=== PATIENT | female | born 1985 | race Caucasian/White ===

== ENCOUNTER 2021-11-16 10:30 | Outpatient (REF) | payer BC, SELFPAY ==
[2021-11-16 14:46] LABS: Free T4 (Free Thyroxine) 0.89 ng/dL (0.71-1.85); Thyroid Stimulating Hormone 6.51 uIU/mL (0.32-4.0)
[2021-11-17 19:52] LABS: Follicle Stimulating Hormone 2.8 mIU/mL; Lutenizing Hormone 0.9 mIU/mL
[2021-11-25 01:52] LABS: Estradiol Free 0.02 pg/mL; Estradiol, Ultrasensitive 2 pg/mL
== END 2021-11-16 10:31 | disposition home or self-care (01) ==
LOC: HO.MANLDS 10:30
PROVIDERS: Visit Provider Physician Assistant
DX: R61 Generalized hyperhidrosis (principal)
CPT/HCPCS: 36415; 82670; 82681; 83001; 83002; 84439; 84443

== ENCOUNTER 2021-12-14 10:08 | Outpatient (REF) | payer BC, SELFPAY ==
[2021-12-14 13:35] LABS: Free T4 (Free Thyroxine) 0.88 ng/dL (0.71-1.85)
== END 2021-12-14 10:09 | disposition home or self-care (01) ==
LOC: HO.MANLDS 10:08
PROVIDERS: Visit Provider Physician Assistant
DX: E03.9 Hypothyroidism, unspecified (principal)
CPT/HCPCS: 36415; 84439; 84443

== ENCOUNTER 2025-02-18 20:36 | Inpatient (IN) | payer BC, SELFPAY ==
--- OUTSIDE RECORDS SUMMARY | 2025-02-18 10:24 | XMS_ITS | Encounter Summary ---
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 Value Ref Range WBC 7.18 4.00 - 11.00 K/uL RBC 4.24 4.00 - 5.20 M/uL HGB 11.4 (L) 12.0 - 16.0 g/dL HCT 35.5 (L) 36.0 - 46.0 % PLT 254 150 - 450 K/uL MCV 83.7 80.0 - 100.0 fL MCH 26.9 (L) 27.0 - 31.0 pg MCHC 32.1 32.0 - 36.0 g/dL RDW 15.0 (H) 11.5 - 14.5 % MPV 11.7 8.4 - 12.0 fL NRBC 0.00 0.00 /100 WBCs ABSOLUTE NRBC 0.00 0.00 K/uL DIFF METHOD Auto NEUTS 73.8 48.0 - 76.0 % LYMPHS 18.0 18.0 - 41.0 % MONOS 7.2 4.0 - 11.0 % EOS 0.1 0.0 - 5.0 % BASOS 0.6 0.0 - 1.5 % Granulocytes, immature (%) 0.3 0.0 - 0.9 % ABSOLUTE NEUTS 5.30 1.92 - 7.60 K/uL ABSOLUTE LYMPHS 1.29 0.72 - 4.10 K/uL ABSOLUTE MONOS 0.52 0.16 - 1.10 K/uL ABSOLUTE EOS 0.01 0.00 - 0.50 K/uL ABSOLUTE BASOS 0.04 0.00 - 0.15 K/uL Granulocytes, immature 0.02 0.00 - 0.09 K/uL Radiology Testing No orders to display MDM Assessment and Plan: 39-year-old female past medical history significant for depression who presents to the emergency department for suicidal ideation. She is afebrile with stable vitals and well-appearing. History and physical as stated above. She has no medical complaints at this time. Medical clearance labs were obtained to further evaluate. They do show baseline anemia. Otherwise labs are grossly unremarkable. Patient was medically cleared while in the emergency department. There is no evidence of acute traumatic injury, acute infection, intoxication or withdrawal syndrome to a degree that would preclude further psychiatric evaluation or treatment. This patient is medically stable. THROW OUT CLERK was contacted to come and evaluate the patient. They deemed she is meeting criteria for inpatient level of care at this time. Patient will be a voluntary bed search. Patient was placed in emergency department observation status pending inpatientpsychiatric bed search. Attestation: Emmy Sales PA-C, have seen this patient independently. This is a PA only visit Category 2 and 3: Independent Interpretation of Tests, Consideration of Tests, or External Discussion of Results: Labs: Laboratory studies were interpreted. Clinical Impressions as of 02/18/251414 Suicidal ideation Critical Care Time: 0 minutes Clinical Impression Diagnosis Description Comment Final diagnosis Suicidal ideation Suicidal ideation -- Disposition: Placed in emergency department psychiatric observation status Emmy Napoles PA-C 02/18/251415 * Iglesia Bowen MD - 02/18/2025 9:35 AM EDT ED Course Clinical Impressions as of 02/18/251947 Suicidal ideation Attestation: I have reviewed and agree with the history, physical exam, medical decision making and plan for thepatient as documented by the APC. As necessary, I have appended the note with my suggestions, comments or clarification to their assessment and plan in the note above. Iglesia Bowen MD 02/18/251947 documented in this encounter Plan of Treatment Not on file documented as of this encounter Procedures Procedure Name Priority Date/Time Associated Diagnosis Comments ETHANOL, BLOOD STAT 02/18/2025 10:40 AM EDT HCG, SERUM QUALITATIVE STAT 10:40 AM EDT LFTS (HEPATIC PANEL) STAT 02/18/2025 10:40 AM EDT CBC AND DIFFERENTIAL STAT 02/18/2025 10:40 AM EDT ACETAMINOPHEN LEVEL STAT 02/18/2025 1 0:40 AM EDT SALICYLATES STAT 02/18/2025 10:40 AM EDT BASIC METABOLIC PANEL STAT 02/18/2025 10:40 AM EDT TOXICOLOGY SCREEN, URINE STAT 02/18/2025 10:14 AM EDT documented in this encounter Results * (ABNORMAL) Salicylates (02/18/2025 10:40 AM EDT) SALICYLATES <0.3(L) 2.8 - 19.9 mg/dL [facility] Blood 02/18/2025 10:4 0 AM EDT 02/18/2025 10:42 AM EDT us Garrison Parks MD LAB BLOOD ORDERABLES Final Resu lt Performing Organization Address City/[facility]/ZIP Co de Phone Number [address] [address] * (ABNORMAL) Acetaminophen level (02/18/2025 10:40 AM EDT) ACETAMINOPHEN <5.0(L) 15.0 - 30.0 ug/mL [facility] Blood 02/18/2025 10:4 0 AM EDT 02/18/2025 10:42 AM EDT us Garrison Parks MD LAB BLOOD ORDERABLES Final Resu lt Performing Organization Address City/[facility]/ZIP Co de Phone Number [address] [address] * HCG, serum qualitative (02/18/2025 10:40 AM EDT) HCG, QUALITATIVE Negative Negative IU/L [facility] Blood 02/18/2025 10:4 0 AM EDT 02/18/2025 10:42 AM EDT us Garrison Parks MD LAB BLOOD ORDERABLES Final Resu lt Performing Organization Address City/[facility]/ZIP Co de Phone Number [address] [address] * Ethanol, blood (02/18/2025 10:40 AM EDT) ETHANOL <10 <10 mg/dL [facility] Blood 02/18/2025 10:4 0 AM EDT 02/18/2025 10:42 AM EDT us Garrison Parks MD LAB BLOOD ORDERABLES Final Resu lt Performing Organization Address [facility] Co de Phone Number [address] [address] * LFTs (hepatic panel) (02/18/2025 10:40 AM EDT) ALKALINE PHOSPHATASE 55 39 - 117 U/L [facility] TOTAL BILIRUBIN 0.4 0.0 - 1.2 mg/dL [facility] DIRECT BILIRUBIN 0.1 0.0 - 0.2 mg/dL [facility] Bilirubin (Indirect) NOT CALCULATED 0 - 1.5 mg/dL [facility] AST 18 0 - 37 U/L [facility] ALT 9 0 - 40 U/L [facility] TOTAL PROTEIN 6.9 6.5 - 8.0 g/dL [facility] ALBUMIN 4.1 3.9 - 4.8 g/dL [facility] GLOBULIN 2.8 1 - 4.8 g/dL [facility] A/G Ratio 1.46 1.00 - 4.80 RATIO [facility] Blood 02/18/2025 10:4 0 AM EDT 02/18/2025 10:42 AM EDT us Garrison Parks MD LAB BLOOD ORDERABLES Final Resu lt Performing Organization Address City/[facility]/ZIP Co de Phone Number [address] [address] * Basic metabolic panel (02/18/2025 10:40 AM EDT) SODIUM 139 133 - 146 mmol/L [facility] CHLORIDE 106 96 - 108 mmol/L [facility] POTASSIUM 4.1 3.3 - 5.1 mmol/L [facility] CO2 22 21 - 35 mmol/L [facility] BUN 11 6 - 19 mg/dL [facility] CREATININE 0.70 0.5 - 1.5 mg/dL [facility] GLUCOSE 93 70 - 99 mg/dL [facility] CALCIUM 9.2 8.4 - 10.3 mg/dL [facility] EGFR 114 >59 mL/min/1.7 3m2 [facility] Comment:Estimated glomerular filtration rate calculated using the CKD-EPI refit equation. ANION GAP 15 10 - 20 mmol/L [facility] Blood 02/18/2025 10:4 0 AM EDT 02/18/2025 10:42 AM EDT us Garrison Parks MD LAB BLOOD ORDERABLES Final Resu lt [address] [address] * (ABNORMAL) CBC and differential (02/18/2025 10:40 AM EDT) WBC 7.18 4.00 - 11.00 K/uL [facility] RBC 4.24 4.00 - 5.20 M/uL [facility] HGB 11.4(L) 12.0 - 16.0 g/dL [facility] HCT 35.5(L) 36.0 - 46.0 % [facility] PLT 254 150 - 450 K/uL [facility] MCV 83.7 80.0 - 100.0 fL [facility] MCH 26.9(L) 27.0 - 31.0 pg [facility] MCHC 32.1 32.0 - 36.0 g/dL [facility] RDW 15.0(H) 11.5 - 14.5 % [facility] MPV 11.7 8.4 - 12.0 fL [facility] NRBC 0.00 0.00 /100 WBCs [facility] ABSOLUTE NRBC 0.00 0.00 K/uL [facility] DIFF METHOD Auto [facility] NEUTS 73.8 48.0 - 76.0 % [facility] LYMPHS 18.0 18.0 - 41.0 % [facility] MONOS 7.2 4.0 - 11.0 % [facility] EOS 0.1 0.0 - 5.0 % [facility] BASOS 0.6 0.0 - 1.5 % [facility] Granulocytes, immature (%) 0.3 0.0 - 0.9 % [facility] ABSOLUTE NEUTS 5.30 1.92 - 7.60 K/uL [facility] ABSOLUTE LYMPHS 1.29 0.72 - 4.10 K/uL [facility] ABSOLUTE MONOS 0.52 0.16 - 1.10 K/uL [facility] ABSOLUTE EOS 0.01 0.00 - 0.50 K/uL [facility] ABSOLUTE BASOS 0.04 0.00 - 0.15 K/uL [facility] Granulocytes, immature 0.02 0.00 - 0.09 K/uL [facility] Blood 02/18/2025 10:4 0 AM EDT 02/18/2025 10:42 AM EDT us Garrison Parks MD LAB BLOOD ORDERABLES Final Resu lt [facility] [address] [place] [address] * (ABNORMAL) Toxicology screen, urine (02/18/2025 10:14 AM EDT) URINE CANNABINOIDS Positive(A) NONE DETECTED [facility] Comment:Cutoff: 50 ng/mL URINE COCAINE METAB NONE DETECTED NONE DETECTED [facility] Comment:Cutoff: 300 ng/mL URINE AMPHETAMINES NONE DETECTED NONE DETECTED [facility] Comment:Cutoff: 1000 ng/mL URINE METHADONE NONE DETECTED NONE DETECTED [facility] Comment:Cutoff: 300 ng/mL URINE OPIATES NONE DETECTED NONE DETECTED [facility] Comment:Cutoff: 300 ng/mL URINE PHENCYCLIDINE NONE DETECTED NONE DETECTED [facility] Comment:Cutoff: 25 ng/mL URINE OXYCODONE NONE DETECTED NONE DETECTED [facility] Comment:Cutoff: 300 ng/mL URINE BARBITURATES NONE DETECTED NONE DETECTED [facility] Comment:Cutoff: 200 ng/mL URINE BENZODIAZEPINE NONE DETECTED NONE DETECTED [facility] Comment:Cutoff: 200 ng/mL URINE BUPRENORPHINE NONE DETECTED NONE DETECTED [facility] Comment:Cutoff: 5 ng/mL Fentanyl, urine NONE DETECTED NONE DETECTED [facility] Comment: Cutoff: 5 ng/mL INTERPRETATION FOR TOXICOLOGY PANEL: These results are unconfirmed and should be used for Medical Treatment purposes only. Urine (Urine) 02/18/2025 10: 14 AM EDT 02/18/2025 1:17 PM EDT us Garrison Parks MD URINE ORDERABLES Final Result Performing Organization Address City/State/[facility] Co de Phone Number [address] [address] documented in this encounter Visit Diagnoses Diagnosis Suicidal ideation- Primary Suicidal ideation documented in this encounter Admitting Diagnoses Diagnosis Suicidal ideation documented in this encounter Administered Medications documented in this encounter Active and Recently Administered Medications Times are shown in EDT. Scheduled Medication Order 02/16/2025 02/17/2025 02/18/2025 fluticasone propionate (FLONASE) 50 mcg/actuation nasal spray 2 spray 2 spray, Each Nare, Daily, First dose on Sun02/18/25 at 1545, Shake gently. Prime pump (press 6 times until fine spray appears) prior to first use or if spray unused for 7 days or GREATER. 1648 (Not Given - Pr ovider: Kristie Cain RN - Reason: Patient took at home) lactobacillus rhamnosus (GG) (CULTURELLE) capsule 1 capsule 1 capsule, Oral, Once, On Sun02/18/25 at 1545, For 1 dose 1648 (Not Given - Pr ovider: Kristie Cain RN - Reason: Patient took at home) documented in this encounter Care Teams Correspondence Section Supervisor Relationship Specialty Start Date End Date Boyd Patterson DO [address] [place] [address] [place] [address] PCP - General Internal Medicine 10/10/24 Reddy Rivera MD [address] [address] Historical LMR Provider 03/12/17 Emym Cartagena MD [address] [address] Historical LMR Provider 03/12/17 Carroll Rojas MD [address] [place] [address] Historical LMR Provider 03/12/17 Brandon Mackenzie MD [address] [address] Historical LMR Provider 03/12/17 Francesca Linda MD [address] [address] Historical LMR Provider 03/12/17 Boyd Patterson DO [address] [facility] [place] [address] Insurance Assigned Provider 01/31/25 documented as of this encounter Additional Source Comments The information contained in this document represents components of the legal health record. It is not the complete legal health record.[facility]
--- OUTSIDE RECORDS SUMMARY | 2025-02-18 20:39 | XMS_ITS | Encounter Summary ---
Author Organization [facility] Address [address] [place] [address] [place] [address] Phone Care Team Providers Care Operations Research Manager Name Role Phone Reddy Rivera MD Unavailable Emmy Cartagena MD Unavailable [phone] Carroll Rojas MD Unavailable [phone] Brandon Mackenzie MD Unavailable [phone] Francesca Linda MD Unavailable [phone] Boyd Patterson DO Primary Care Provider [phone] Boyd Patterson DO Unavailable Encounter Details Date Type Department Care Team (Late st Contact Info) Description 11/14/2024 Transcribe Orders [facility] Specimen Processing [address] [place] [address] Boyd Patterson DO [address] [facility] [place] [address] [email or web address] Social History Tobacco Use Types Packs/Day Years [...] got money to buy more. Never True 10/10/2024 Within the past 6 months the food we bought just didn't last and we didn't have enough money to get more. Never True Residential Stability Answer Date Recor ded What is your housing situation today? I have melissa serrato 10/10/2024 How many times have you move d in the past 12 months? Zero (I did not move) 10/10/2024 Paying for Meds Answer Date Recorded Do you have trouble paying for medicines? No 10/10/2024 Paying Utility Bills Answer Date Record ed Do you have trouble paying your heating or elect ricity bill? No 10/10/2024 Transportation Answer Date Recorded Has the lack of transportati on kept you from medical appointments or from getting medications? No 10/10/2024 Digital Access Answer Date Recorded No 10/10/2024 Yes 10/10/2024 Do you have reliable internet access at home? Ye s 10/10/2024 Do you have a device (e.g., phone, tablet, computer) with a working camera? Yes 10/10/2024 Intimate Partner Violence Answer Date R ecorded Are you denied basic needs s uch as food, clothing, or medical care? No 10/10/2024 In the past 12 months have y ou been in a relationship with a person who hurts, threatens, or tries to control you? No 10/10/2024 Are you denied basic needs s uch as food, clothing, or medical care? No 10/10/2024 In the past 12 months have y ou been in a relationship with a person who hurts, threatens, or tries to control you? 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 Not on file Not on file documented as of this encounter Plan of Treatment Not on file documented as of this encounter Visit Diagnoses Not on filedocumented in this encounter Care Teams Operations Research Manager Relationship Specialty Start Date End Date Boyd Patterson DO [address] [facility] [place] [address] PCP - General Internal Medicine 10/10/24 Reddy Rivera MD [address] [address] Historical LMR Provider 03/12/17 Emmy Cartagena MD [address] [address] Historical LMR Provider 03/12/17 Carroll Rojas MD [address] [place] [address] Historical LMR Provider 03/12/17 Brandon Mackenzie MD [address] [address] Historical LMR Provider 03/12/17 Francesca Linda MD [address] [address] Historical LMR Provider 03/12/17 Boyd Patterson DO [address] [facility] [place] [address] Insurance Assigned Provider 01/31/25 documented as of this encounter Additional Source Comments The information contained in this document represents components of the legal health record. It is not the complete legal health record.[facility]
--- OUTSIDE RECORDS SUMMARY | 2025-02-18 20:39 | XMS_ITS | Encounter Summary ---
Author Organization [facility] Address [address] [place] [address] [place] [address] Phone Care Team Providers Care Biostatistics Professor Name Role Phone Reddy Rivera MD Unavailable Emmy Cartagena MD Unavailable [phone] Carroll Rojas MD Unavailable [phone] Brandon Mackenzie MD Unavailable [phone] Francesca Linda MD Unavailable [phone] Bigda, Boyd A DO Primary Care Provider [phone] Bigda, Boyd A DO Primary Care Provider [phone] Bigda, Boyd A DO Unavailable Encounter Details Date Type Department Care Team (Late st Contact Info) Description 09/28/2023 Procedure Pass [facility], Ct Scan - [address] [address] Social History Tobacco Use Types Packs/Day Years Used Date Smoking Tobacco: Former Smokeless Tobacco: Never Alcohol Use Standard Drinks/Week Comments Not Currently 0 (1 standard drink = 0.6 oz pur e alcohol) Education Answer Date Recorded Are you interested in more education? Not on dixie e 09/22/2022 Are you concerned about learning? Not on file 09/22/2022 No 09/22/2022 No 09/22/2022 Digital Access Answer Date Recorded No 10/23/2022 No 10/23/2022 Reliable internet access at home? Not on file 10/23/2022 Device with a working camera? Not on file Intimate Partner Violence Answer Date R ecorded Are you denied basic needs s uch as food, clothing, or medical care? No 09/28/2023 In the past 12 months have y ou been in a relationship with a person who hurts, threatens, or tries to control you? No 09/28/2023 Are you denied basic needs s uch as food, clothing, or medical care? No 09/28/2023 In the past 12 months have y ou been in a relationship with a person who hurts, threatens, or tries to control you? 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 Wish to be (Past 1 Month) No 024 10:52 AM EDT Tim Mercado, TATYANA 2. Non-Specific Active Suici moises Thoughts (Past 1 Month) No 09/28/2023 10:52 AM EDT Mik Mercado RN 6. Suicidal Behavior (Lifetime) No 10:52 AM EDT Tim Mercado, TATYANA documented as of this encounter Plan of Treatment Not on file documented as of this encounter Visit Diagnoses Not on filedocumented in this encounter Care Teams Biostatistics Professor Relationship Specialty Start Date End Date Boyd Patterson DO [address] [place] [address] PCP - General 05/31/17 10/09/24 Boyd Patterson DO [address] [place] [address] [place] [address] PCP - General Internal Medicine 10/10/24 Reddy Rivera MD [address] [address] Historical LMR Provider 03/12/17 Emmy Cartagena MD [address] [address] Historical LMR Provider 03/12/17 Carroll Rojas MD [address] [place] [address] Historical LMR Provider 03/12/17 Brandon Mackenzie MD [address] [address] Historical LMR Provider 03/12/17 Francesca Linda MD [address] [address] Historical LMR Provider 03/12/17 Boyd Patterson DO [address] [facility] [place] [address] Insurance Assigned Provider 01/31/25 documented as of this encounter Additional Source Comments The information contained in this document represents components of the legal health record. It is not the complete legal health record.[facility]
--- OUTSIDE RECORDS SUMMARY | 2025-02-18 20:39 | XMS_ITS | Encounter Summary ---
Author Organization [facility] Address [address] [place] [address] [place] [address] Phone Care Team Providers Care Ore Washer Name Role Phone Reddy Rivera MD Unavailable Emmy Cartagena MD Unavailable [phone] Carroll Rojas MD Unavailable [phone] Brandon Mackenzie MD Unavailable [phone] Francesca Linda MD Unavailable [phone] Bigda, Boyd A DO Primary Care Provider [phone] Bigda, Boyd A DO Primary Care Provider [phone] Bigda, Boyd A DO Unavailable Encounter Details Date Type Department Care Team (Latest Contact Info) Description 06/26/2023 Transcribe Orders Virtual Department [address] [place] [address] Mariana Rogers PA [address] [place] [address] [place] [address] Thyroiditis (Primary Dx) Social History Tobacco Use Types Packs/Day Years [...] with a working camera? 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 No discrete thyroid nodule demonstrated. Narrative 07/03/2023 5:02 PM EST US THYROID GLAND Referring clinician's provided indication for this examination in [facility]: Outside Radiology Order; THYROIDITIS TECHNIQUE: Ultrasound of the thyroid. COMPARISON: There is no prior study available for comparison FINDINGS: Right Thyroid: The right lobe measures 5.1 in sagittal dimension. The thyroid parenchyma is heterogeneous. No discrete nodule demonstrated. No right sided adenopathy is detected. Left Thyroid: The left lobe measures 4.9 in sagittal dimension. The thyroid parenchyma is heterogeneous. No discrete nodule demonstrated. No left sided adenopathy is detected. Procedure Note Missy Willingham MD - 07/03/2023 US THYROID GLAND Referring clinician's provided indication for this examination in [facility]:Outside Radiology Order; THYROIDITIS TECHNIQUE: Ultrasound of the thyroid. COMPARISON: There is no prior study available for comparison FINDINGS: Right Thyroid: The right lobe measures 5.1 in sagittal dimension. The thyroid parenchyma is heterogeneous. No discrete nodule demonstrated. No right sided adenopathy is detected. Left Thyroid: The left lobe measures 4.9 in sagittal dimension. The thyroid parenchyma is heterogeneous. No discrete nodule demonstrated. No left sided adenopathy is detected. IMPRESSION: Heterogeneous appearance of the thyroid parenchyma which may be on thebasis of autoimmune thyroiditis. No discrete thyroid noduledemonstrated. us Mariana BARNES IMG US THYROID Final Resul t documented in this encounter Visit Diagnoses Diagnosis Thyroiditis- Primary Unspecified thyroiditis Thyroiditis Unspecified thyroiditis documented in this encounter Care Teams Ore Washer Relationship Specialty Start Date End Date Boyd Patterson DO [address] [address] PCP - General 05/31/17 10/09/24 Boyd Patterson DO [address] [facility] [place] [address] PCP - General Internal Medicine 10/10/24 Reddy Rivera MD [address] [address] Historical LMR Provider 03/12/17 Emmy Cartagena MD [address] [address] Historical LMR Provider 03/12/17 Carroll Rojas MD [address] [place] [address] Historical LMR Provider 03/12/17 Brandon Mackenzie MD [address] [address] Historical LMR Provider 03/12/17 Francesca Linda MD [address] [facility] [address] [place] [address] [email or web address] Historical LMR Provider 03/12/17 Boyd Patterson DO [address] [facility] [place] [address] [email or web address] Insurance Assigned Provider 01/31/25 documented as of this encounter Additional Source Comments The information contained in this document represents components of the legal health record. It is not the complete legal health record.[facility]
--- OUTSIDE RECORDS SUMMARY | 2025-02-18 20:39 | XMS_ITS | Clinical Summary ---
Author Organization [facility] Address [address] [place] [address] [place] [id number] Phone Care Team Providers Care Blunger Machine Operator Name Role Phone Reddy Rivera MD Unavailable Emmy Cartagena MD Unavailable [phone] Carroll Rojas MD Unavailable [phone] Brandon Mackenzie MD Unavailable [phone] Francesca Linda MD Unavailable [phone] Boyd Patterson DO Primary Care Provider [phone] Boyd Patterson DO Unavailable Allergies Active Allergy Reactions Criticality Noted Date Comments Acetaminophen-Pamabrom Hives 10/06/2020 Allergic to PAMABROM not tylenol Ibuprofen Hives 11/03/2016 Medications cetirizine (ZYRTEC) 10 MG tablet Take 10 mg by mouth daily. Active FLUoxetine (PROZAC) 20 MG capsule Take 1 tablet by mouth daily. Active FLUoxetine (PROZAC) 40 MG capsule Take 1 tablet by mouth daily. Active levothyroxine (SYNTHROID, LEVOTHROID) 88 MCG tablet Take 88 mcg by mouth daily. Active drospirenone-ethin yl estradioL (KYLE, 28,) 3-0.02 mg per tabletIndications: Encounter for contraceptive management, unspecified type Take 1 tablet by mouth daily. 84 tablet 3 08/01/19 24 Active Additional Information Patient not taking.Reported on 01/12/2025 methylPREDNISolone (MEDROL DOSEPACK) 4 mg tablet follow package directions 21 tablet 09/28/19 Active Additional Information Patient not taking.Reported on 01/12/2025 morphine (MSIR) 15 MG tablet Take 1 tablet (15 mg total) by mouth every 4 (four) hours as needed for pain (specific location in comments). Partial fill ok 6 tablet 09/28/19 Active Additional Information Patient not taking.Reported on 01/12/2025 levothyroxine (SYNTHROID, LEVOTHROID) 75 MCG tablet Take 1 tablet by mouth every morning. 09/21/19 Active ondansetron (ZOFRAN-ODT) 4 MG disintegrating tablet Take 1 tablet (4 mg total) by mouth every 8 (eight) hours as needed for nausea. 10 tablet 10/11/19 Active Additional Information Patient not taking.Reported on 01/12/2025 famotidine (PEPCID) 40 MG tablet Take 40 mg by mouth daily as needed. 11/17/19 Active pantoprazole (PROTONIX) 40 MG tablet Take 40 mg by mouth daily. 11/17/19 Active meclizine (ANTIVERT) 25 mg tablet Take 1 tablet (25 mg total) by mouth 3 (three) times a day as needed for dizziness or nausea. 21 tablet 01/13/20 Active Additional Information Patient not taking.Reported on 02/18/2025 fluticasone propionate (FLONASE) 50 mcg/actuation nasal spray SPRAY 1 SPRAY BY INTRANASAL ROUTE EVERY DAY DIRECTED FOR 30 DAYS Active nitrofurantoin (MACROBID) 100 MG capsule Take 1 capsule (100 mg total) by mouth 2 (two) times a day for 5 days. 10 capsule 02/13/20 25 025 Active Problems Problem Noted Date Diagnosed Date Suicidal ideation 02/18/2025 Clostridium difficile colitis 10/30/2024 Gastro-esophageal reflux disease with esophagiti s 10/24/2024 Acute cystitis with hematuria 11/08/2023 Hypothyroidism 06/01/2023 Fracture of ankle 07/23/2019 Fibroids 12/11/2018 Overview (01/14/2019): Multiple small intramural fibroids, largest 3 cm Risk for PP hemorrhage discussed Anxiety 12/11/2018 Resolved Problems Problem Noted Date Diagnosed Date Resolved Date Normal intrauterine , antepartum 06/25/2019 10/20/2020 Abnormal glucose tolerance test in 9 10/20/2020 Overview (04/18/2019): Normal 3hr GTT (81/154/106/98) Assessment & Plan (03/24/2019 9:48 AM EDT): Result explained to pt and pt to have 3hr gtt this week. Gestational hypertension, third trimester 03/21/2019 10/20/2020 Overview (06/25/2019): Meets criteria for diagnosis on 06/25/2019 with second elevated blood pressure HELLP labs WNL on admission to [facility] Induction of labor recommended and accepted. Assessment & Plan (06/25/2019 4:48 PM EST): She now meets the criteria for gestational hypertension as she also had one elevated blood pressure at 24-25 weeks. She denies any signs or symptoms of preeclampsia. Will send to [facility] for repeat BP's and labs. posting machine operator team notified. Assessment & Plan (06/12/2019 4:11 PM EST): Continues to be normal, warning signs reviewed Assessment & Plan (06/05/2019 9:25 AM EST): Blood pressure has been normal since then. Assessment & Plan (03/24/2019 9:48 AM EDT): BP remains normal. Assessment & Plan (03/21/2019 10:43 AM EDT): Single elevated reading today, improved when rechecked later in visit. Patient without symptoms or edema. Urine test negative. Reviewed symptoms to report, and return in 3-5 days for visit and BP check. Echogenic intracardiac focus of fetus on ultrasound 02/18/2019 10/20/2020 Overview (02/18/2019): Counseled on 02/18; Had low risk of down's on first trimester screen Recommended no further testing High-risk in third trimester 11/13/2018 10/20/2020 Overview (06/25/2019): Obesity BMI 40 MD Childbirth Ed? declines Group PN care? none Rh pos Tdap 05/05/19 Flu received 03/21/19 Hgb 10.5 GTT 148 -> normal 3hr GBS negative PPBC * screening: accepts NT and anatomy survey Assessment & Plan (06/25/2019 4:47 PM EST): She notes good movement. She denies any vaginal bleeding, LOF or regular contractions. Assessment & Plan (06/12/2019 4:12 PM EST): GBS sent Assessment & Plan (06/05/2019 9:29 AM EST): She notes good movement. She denies any vaginal bleeding, LOF or regular contractions. She had an ultrasound today with an EFW at the 28th percentile. Assessment & Plan (05/05/2019 9:30 AM EST): Patient notes good movement. Has no concerns. Received Tdap today. On Alon growth feels normal. Fundal height is high due to pannus. Doing well with monitoring healthy eating and exercise. Has had minimal weight gain. Assessment & Plan (03/24/2019 9:52 AM EDT): Notes good FM. Has no concerns today. FH 32 (pannus is present. Alon size grossly = dates) Obesity affecting in third trimester 11/13/2018 10/20/2020 Overview (05/19/2019): Healthy diet, exercises 3-5 times/week Prepregnancy BMI >= 60 transfer BMI 55-60 high risk list BMI >60 consider transfer o Hgb A1C or glucose tolerance test o Nutr counseling o 11-15lb weight gain o Growth sono q 4 wks if fundal height not reliable, after 28 weeks o Induction only if indicated o PP lovenox according to guidelines S > D at 33 weeks: US for growth. Assessment & Plan (05/05/2019 9:22 AM EST): Pt has done well with minimal weight gain. Assessment & Plan (03/24/2019 9:49 AM EDT): Has had minimal weight gain. Eating healthier, avoiding sweet drinks. Exercise daily encouraged. Encounters Date Type Department Care Team Description 02/18/2025 10:24 AM EDT - 02/18/2025 8:03 PM EDT Hospital Encounter [facility] [address] [place] [address] Iglesia Bowen MD Noone, Caleb J, MD Discharge Disposition: Another Health Care Institution Not Defined 02/13/2025 Telephone [facility] at [address] [address] Nessa Nicole CNP 02/12/2025 Telephone [facility] at [address] [address] Bhavik Farmer PA-C 02/11/2025 5:40 PM EDT Office Visit [facility] at [address] [address] Manisha Steven CNP Urinary urgency (Primary Dx); Ketonuria; Frequency of micturition 01/21/2025 2:06 PM EDT - 01/21/2025 11:59 PM EDT Hospital Encounter [facility] [address] [place] [address] Avinash Ventura MD Discharge Disposition: Home or Self Care 01/12/2025 2:17 PM EDT - 01/12/2025 6:06 PM EDT Emergency [facility] [address] [place] [address] Garrison Parks MD Birrenkott, Drew Alan, MD, DPHIL Discharge Disposition: Home or Self Care 01/12/2025 12:30 PM EDT Office Visit [facility] at [address] [address] Sejal aVladez, ARTIFICIAL INTELLIGENCE SPECIALIST Dizzy (Primary Dx); Nausea and vomiting, unspecified vomiting type 01/12/2025 Procedure [facility], Ct Scan - [facility] [address] [place] [address] 01/12/2025 Procedure [facility], Fl Scan - [facility] [address] [place] [address] from Last 3 Months Immunizations Immunization Administration Dates Next Due COVID-19 (Pre-03/19) AstraZe neca Vaccine, rS-ChAdOx1, PF 09/22/2020,08/27/2020 COVID-19 (Pre-03/19) Pfizer Vaccine, mRNA, PF 04/19/2021,04/19/2021,09/22/2020,2020 Influenza Quadrivalent Prese rvative Free IM 03/21/2019,06/10/2013 Influenza Recombinant Trival ent Preservative Free IM 03/20/2022 Influenza, Unspecified Formulation 04/09/2023 Tdap 05/05/2019,05/05/2019,11/27/2013 Family History Medical History Relation Comments Hypertension Father Stroke Father Atrial fibrillation Mother Hypertension Mother Relation Status Comments Daughter Alive Father Alive Mother Alive Social History Tobacco Use Types Packs/Day Years Used Date Smoking Tobacco: Former Smokeless Tobacco: Never Tobacco Cessation:Counseling Given: Not Answered Alcohol Use Standard Drinks/Week Comments Not Currently [...] 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 Not on file Not on file Last Filed Vital Signs Vital Sign Reading [...] Mass Index 32.12 02/18/2025 10:08 AM EDT Plan of Treatment Health Maintenance Due Date Last Done Comments DEPRESSION SCREENING 1999 SMOKING Hx and SMOKELESS TOBACCO SCREENING 2000 INFLUENZA VACCINE (#1) 2024 , 04/09/2023, 03/20/2022, Additional history exists COVID-19 VACCINE ( season) 2025 04/09/2023, 04/19/2021, 04/19/2021, Additional history exists TSH LEVEL 01/12/2026 01/12/2025, 03/0 01/2024, 06/25/2023, Additional history exists SCREENING FOR DIABETES 02/19/2028 02/18/2025, 2024 PAP SMEAR 07/31/2028 08/01/2023, 11/25, 12/11/2018, Additional history exists Adult Td,Tdap Booster 05/05/2029 05/05/2019 , 05/05/2019, 11/27/2013 HEPATITIS C SCREENING Completed 11/13/2018 HIV ONE-TIME SCREENING (18-65 YEARS) Completed 11/13/2018 HEPATITIS A VACCINES Aged Out No long er eligible based on patient's age to complete this topic HIB VACCINES Aged Out No longer eligi ble based on patient's age to complete this topic MENINGOCOCCAL VACCINES (ACWY) Aged Out No longer eligible based on patient's age to complete this topic MENINGOCOCCAL VACCINES (B) Aged Out N o longer eligible based on patient's age to complete this topic PNEUMOCOCCAL VACCINES (0-49 years) Aged Out No longer eligible based on patient's age to complete this topic Medical Devices Not on file Procedures Procedure Name Priority Date/Time Associated Diagnosis Comments SALICYLATES STAT 02/18/2025 10:40 AM EDT ACETAMINOPHEN LEVEL STAT 02/18/2025 1 0:40 AM EDT HCG, SERUM QUALITATIVE STAT 10:40 AM EDT ETHANOL, BLOOD STAT 02/18/2025 10:40 AM EDT LFTS (HEPATIC PANEL) STAT 02/18/2025 10:40 AM EDT BASIC METABOLIC PANEL STAT 02/18/2025 10:40 AM EDT CBC AND DIFFERENTIAL STAT 02/18/2025 10:40 AM EDT TOXICOLOGY SCREEN, URINE STAT 02/18/2025 10:14 AM EDT URINE CULTURE Routine 02/11/2025 6:35 PM EDT Frequency of micturition POCT GLUCOSE Routine 02/11/2025 6:34 PM EDT Ketonuria COMPREHENSIVE METABOLIC PANEL Routine 02/11/2025 6:09 PM EDT Ketonuria CBC AND DIFFERENTIAL Routine 02/11/2025 6:09 PM EDT Ketonuria POCT URINE HCG Routine 02/11/2025 5:52 PM EDT Urinary urgency POCT URINE DIPSTICK Routine 02/11/2025 5 :48 PM EDT ANATOMIC PATHOLOGY Routine 01/21/2025 12 :00 AM EDT POCT GLUCOSE Routine 01/12/2025 3:52 PM EDT TOXICOLOGY SCREEN, URINE STAT 01/12/2025 3:48 PM EDT URINALYSIS W/REFLEX URINE CULTURE STAT 01/12/2025 3:48 PM EDT TYPE AND SCREEN (ABO,RH,ANTIBODY SCREEN) STAT 01/12/2025 3:46 PM EDT FREE T4 STAT 01/12/2025 3:46 PM EDT HEMOGLOBIN A1C STAT 01/12/2025 3:46 PM EDT SEDIMENTATION RATE (ESR) STAT 01/12/2025 3:46 PM EDT C-REACTIVE PROTEIN, HIGH SENSITIVITY STAT 01/12/2025 3:46 PM EDT LIPID PANEL STAT 01/12/2025 3:46 PM EDT TSH WITH REFLEX STAT 01/12/2025 3:46 PM EDT ETHANOL, BLOOD STAT 01/12/2025 3:46 PM EDT TROPONIN STAT 01/12/2025 3:46 PM EDT PT-INR STAT 01/12/2025 3:46 PM EDT LFTS (HEPATIC PANEL) STAT 01/12/2025 3:46 PM EDT MAGNESIUM STAT 01/12/2025 3:[address] ANGIO HEAD (CODE STROKE) W CONTRAST, CT ANGIO NECK W CONTRAST STAT 01/12/2025 3:[address] HEAD (CODE STROKE) WITHOUT CONTRAST STAT 01/12/2025 3:28 PM EDT HCG (QUANTITATIVE, BLOOD) STAT 01/12/2025 3:06 PM EDT MAGNESIUM STAT 01/12/2025 3:06 PM EDT BASIC METABOLIC PANEL STAT 01/12/2025 3:06 PM EDT CBC AND DIFFERENTIAL STAT 01/12/2025 3:06 PM EDT ECG 12-LEAD STAT 01/12/2025 1:24 PM EDT PAP TEST Routine 08/01/2023 12:00 AM EST HEPATITIS C ANTIBODY, QUALITATIVE Routine 11/13/2018 9:07 AM EDT Encounter for supervision of other normal in first trimester from Last 3 Months or Most Recently Relevant to Health Maintenance Results * Ethanol, blood (02/18/2025 10:40 AM EDT) Only the most recent of2 resultswithin the time period is included. ETHANOL <10 <10 mg/dL [facility] Blood 02/18/2025 10:4 0 AM EDT 02/18/2025 10:42 AM EDT us Garrison Parks MD LAB BLOOD ORDERABLES Final Resu lt Performing Organization Address City/[facility]/ZIP Co de Phone Number [address] [address] * HCG, serum qualitative (02/18/2025 10:40 AM EDT) HCG, QUALITATIVE Negative Negative IU/L [facility] Blood 02/18/2025 10:4 0 AM EDT 02/18/2025 10:42 AM EDT us Garrison Parks MD LAB BLOOD ORDERABLES Final Resu lt Performing Organization Address [facility]/ZIP Co de Phone Number [address] [address] * LFTs (hepatic panel) (02/18/2025 10:40 AM EDT) Only the most recent of2 resultswithin the time period is included. ALKALINE PHOSPHATASE 55 39 - 117 U/L [facility] TOTAL BILIRUBIN 0.4 0.0 - 1.2 mg/dL [facility] DIRECT BILIRUBIN 0.1 0.0 - 0.2 mg/dL [facility] Bilirubin (Indirect) NOT CALCULATED 0 - 1.5 mg/dL [facility] AST 18 0 - 37 U/L [facility] ALT 9 0 - 40 U/L [facility] TOTAL PROTEIN 6.9 6.5 - 8.0 g/dL [facility] ALBUMIN 4.1 3.9 - 4.8 g/dL [facility] GLOBULIN 2.8 1 - 4.8 g/dL [facility] A/G Ratio 1.46 1.00 - 4.80 RATIO [facility] Blood 02/18/2025 10:4 0 AM EDT 02/18/2025 10:42 AM EDT us Garrison Parks MD LAB BLOOD ORDERABLES Final Resu lt [facility] [address] [place] [address] * (ABNORMAL) CBC and differential (02/18/2025 10:40 AM EDT) Only the most recent of3 resultswithin the time period is included. WBC 7.18 4.00 - 11.00 K/uL [facility] RBC 4.24 4.00 - 5.20 M/uL [facility] HGB 11.4(L) 12.0 - 16.0 g/dL [facility] HCT 35.5(L) 36.0 - 46.0 % [facility] PLT 254 150 - 450 K/uL [facility] MCV 83.7 80.0 - 100.0 fL [facility] MCH 26.9(L) 27.0 - 31.0 pg [facility] MCHC 32.1 32.0 - 36.0 g/dL [facility] RDW 15.0(H) 11.5 - 14.5 % [facility] MPV 11.7 8.4 - 12.0 fL [facility] NRBC 0.00 0.00 /100 WBCs [facility] ABSOLUTE NRBC 0.00 0.00 K/uL [facility] DIFF METHOD Auto [facility] NEUTS 73.8 48.0 - 76.0 % [facility] LYMPHS 18.0 18.0 - 41.0 % [facility] MONOS 7.2 4.0 - 11.0 % [facility] EOS 0.1 0.0 - 5.0 % [facility] BASOS 0.6 0.0 - 1.5 % [facility] Granulocytes, immature (%) 0.3 0.0 - 0.9 % [facility] ABSOLUTE NEUTS 5.30 1.92 - 7.60 K/uL [facility] ABSOLUTE LYMPHS 1.29 0.72 - 4.10 K/uL [facility] ABSOLUTE MONOS 0.52 0.16 - 1.10 K/uL [facility] ABSOLUTE EOS 0.01 0.00 - 0.50 K/uL [facility] ABSOLUTE BASOS 0.04 0.00 - 0.15 K/uL [facility] Granulocytes, immature 0.02 0.00 - 0.09 K/uL [facility] Blood 02/18/2025 10:4 0 AM EDT 02/18/2025 10:42 AM EDT us Garrison Parks MD LAB BLOOD ORDERABLES Final Resu lt Performing Organization Address City/[facility]/ZIP Co de Phone Number [address] [address] * (ABNORMAL) Acetaminophen level (02/18/2025 10:40 AM EDT) ACETAMINOPHEN <5.0(L) 15.0 - 30.0 ug/mL [facility] Blood 02/18/2025 10:4 0 AM EDT 02/18/2025 10:42 AM EDT us Garrison Parks MD LAB BLOOD ORDERABLES Final Resu lt Performing Organization Address City/[facility]/ZIP Co de Phone Number [address] [address] * (ABNORMAL) Salicylates (02/18/2025 10:40 AM EDT) SALICYLATES <0.3(L) 2.8 - 19.9 mg/dL [facility] Blood 02/18/2025 10:4 0 AM EDT 02/18/2025 10:42 AM EDT us Garrison Parks MD LAB BLOOD ORDERABLES Final Resu lt Performing Organization Address City/[facility]/ZIP Co de Phone Number [address] [address] * Basic metabolic panel (02/18/2025 10:40 AM EDT) Only the most recent of2 resultswithin the time period is included. SODIUM 139 133 - 146 mmol/L [facility] CHLORIDE 106 96 - 108 mmol/L [facility] POTASSIUM 4.1 3.3 - 5.1 mmol/L [facility] CO2 22 21 - 35 mmol/L [facility] BUN 11 6 - 19 mg/dL [facility] CREATININE 0.70 0.5 - 1.5 mg/dL [facility] GLUCOSE 93 70 - 99 mg/dL [facility] CALCIUM 9.2 8.4 - 10.3 mg/dL [facility] EGFR 114 >59 mL/min/1.7 3m2 [facility] Comment:Estimated glomerular filtration rate calculated using the CKD-EPI refit equation. ANION GAP 15 10 - 20 mmol/L [facility] Blood 02/18/2025 10:4 0 AM EDT 02/18/2025 10:42 AM EDT Garrison Parks MD LAB BLOOD ORDERABLES Final Resu lt Performing Organization Address [facility] Co de Phone Number [address] [address] * (ABNORMAL) Toxicology screen, urine (02/18/2025 10:14 AM EDT) Only the most recent of2 resultswithin the time period is included. URINE CANNABINOIDS Positive(A) NONE DETECTED [facility] Comment:Cutoff: 50 ng/mL URINE COCAINE METAB NONE DETECTED NONE DETECTED [facility] Comment:Cutoff: 300 ng/mL URINE AMPHETAMINES NONE DETECTED NONE DETECTED [facility] Comment:Cutoff: 1000 ng/mL URINE METHADONE NONE DETECTED NONE DETECTED [facility] Comment:Cutoff: 300 ng/mL URINE OPIATES NONE DETECTED NONE DETECTED [facility] Comment:Cutoff: 300 ng/mL URINE PHENCYCLIDINE NONE DETECTED NONE DETECTED [facility] Comment:Cutoff: 25 ng/mL URINE OXYCODONE NONE DETECTED NONE DETECTED [facility] Comment:Cutoff: 300 ng/mL URINE BARBITURATES NONE DETECTED NONE DETECTED [facility] Comment:Cutoff: 200 ng/mL URINE BENZODIAZEPINE NONE DETECTED NONE DETECTED [facility] Comment:Cutoff: 200 ng/mL URINE BUPRENORPHINE NONE DETECTED NONE DETECTED [facility] Comment:Cutoff: 5 ng/mL Fentanyl, urine NONE DETECTED NONE DETECTED [facility] Comment: Cutoff: 5 ng/mL INTERPRETATION FOR TOXICOLOGY PANEL: These results are unconfirmed and should be used for Medical Treatment purposes only. Urine (Urine) 02/18/2025 10: 14 AM EDT 02/18/2025 1:17 PM EDT us Garrison Parks MD URINE ORDERABLES Final Result Performing Organization Address City/State/[facility] Co de Phone Number [address] [address] * (ABNORMAL) Urine Culture (02/11/2025 6:35 PM EDT) Special Requests None 02/11/2025 6:35 PM EDT [facility] Urine Culture >100,000 colony forming units per mL STAPHYLOCOCCUS SAPROPHYTICUS(A) 02/14/2025 7:47 AM EDT [facility] Urine (Urine) 02/11/2025 6:3 5 PM EDT 02/11/2025 8:43 PM EDT Narrative Organism Antibiotic Method Susceptibility Staphylococcus saprophyticus Penicillin G SHARMIN METHOD 0.12: Resistant Staphylococcus saprophyticus Oxacillin(methicillin) MS C METHOD 0.5: Resistant Staphylococcus saprophyticus Gentamicin SHARMIN METHOD <=0.5: Susceptible Staphylococcus saprophyticus Levofloxacin SHARMIN METHOD 0.5: Susceptible Staphylococcus saprophyticus inducible clindamycin SHARMIN METHOD Negative Staphylococcus saprophyticus Vancomycin SHARMIN METHOD 1: Susceptible Staphylococcus saprophyticus Tetracycline SHARMIN METHOD <=1: Susceptible Staphylococcus saprophyticus Nitrofurantoin SHARMIN METHOD <=16: Susceptible Staphylococcus saprophyticus Rifampin SHARMIN METHOD <=0.5: Susceptible Comment: Manisha Steven CNP MICROBIOLOGY - GENERAL ORDE RABLES Final Result [facility] [address] [place] [address] * POCT Glucose (02/11/2025 6:34 PM EDT) Glucose 88 70 - 100 mg/dL [facility] Other 02/11/2025 6:34 PM EDT Manisha Steven CNP POINT OF CARE TEST ORDERABL ES Final Result Performing Organization Address [facility] Co de Phone Number [facility] [address] [address], [facility] [phone] * Comprehensive metabolic panel (02/11/2025 6:09 PM EDT) SODIUM 138 133 - 146 mmol/L [facility] POTASSIUM 4.1 3.3 - 5.1 mmol/L [facility] CHLORIDE 102 96 - 108 mmol/L [facility] CO2 23 21 - 35 mmol/L [facility] BUN 8 6 - 19 mg/dL [facility] CREATININE 0.60 0.5 - 1.5 mg/dL [facility] GLUCOSE 88 70 - 99 mg/dL [facility] ALBUMIN 4.4 3.9 - 4.8 g/dL [facility] TOTAL PROTEIN 7.4 6.5 - 8.0 g/dL [facility] CALCIUM 9.6 8.4 - 10.3 mg/dL [facility] ALKALINE PHOSPHATASE 59 39 - 117 U/L [facility] TOTAL BILIRUBIN 0.5 0.0 - 1.2 mg/dL [facility] AST 21 0 - 37 U/L [facility] ALT 11 0 - 40 U/L [facility] GLOBULIN 3.0 1 - 4.8 g/dL [facility] EGFR 118 >59 mL/min/1.7 3m2 [facility] Comment:Estimated glomerular filtration rate calculated using the CKD-EPI refit equation. ANION GAP 17 10 - 20 mmol/L [facility] Blood 02/11/2025 6:09 PM EDT 02/11/2025 8:45 PM EDT Manisha Steven CNP LAB BLOOD ORDERABLES Final Result [facility] [address] [place] [address] * Poct Urine HCG (02/11/2025 5:52 PM EDT) HCG, urine Negative, Internal QCs acceptable Negative [facility] Other 02/11/2025 5:52 PM EDT Manisha Steven CNP POINT OF CARE TEST ORDERABL ES Final Result Performing Organization Address City/[facility]/ZIP Co de Phone Number [facility] [address] [address], [facility] [phone] * (ABNORMAL) POCT Urine Dipstick (Automated) (02/11/2025 5:48 PM EDT) COLOR Yellow [facility] TURBIDITY Clear [facility] GLUCOSE, POCT Negative Negative [facility] KETONE, POCT 3+(A) Negative [facility] OCCULT BLOOD, POCT 2+(A) Negative [facility] SPECIFIC GRAVITY, POCT 1.015 1.001 - 1.030 [facility] ALBUMIN, POCT Trace(A) Negative [facility] Bili Negative Negative [facility] Urobilinogen 0.2 <1.0 [facility] NITRITE, POCT Negative Negative [facility] PH, POCT 7.5 5.0 - 8.0 [facility] WBC SCREEN, POCT 1+(A) Negative [facility] 02/11/2025 5:48 PM EDT 02/11/2025 5:50 PM EDT Manisha Steven CNP POINT OF CARE TEST ORDERABL ES Final Result [facility] [address] [address], [facility] [phone] * Anatomic Pathology (01/21/2025 12:00 AM EDT) 01/21/2025 01/21/2025 2:3 8 PM EDT Narrative SEE NARRATIVE - 01/22/2025 3:01 PM EDT [address] [address] [employer]: Jordi Rivas MD Surgical Pathology Report FINAL PATHOLOGIC DIAGNOSIS: A. DUODENUM, BIOPSY: No pathologic abnormalities. B. STOMACH ANTRUM, BIOPSY: No pathologic abnormalities. C. GASTROESOPHAGEAL JUNCTION, BIOPSY: Cardiac type mucosa with no pathologic abnormalities. D. ILEUM, BIOPSY: No pathologic abnormalities. E. RANDOM COLON, BIOPSY: No pathologic abnormalities. Electronically Signed Out By Mona Srivastava MD By his/her signature above, the pathologist listed as making the Final Diagnosis certifies that he/she has personally reviewed this case and confirmed or corrected the diagnosis. CLINICAL HISTORY Preoperative diagnosis: Chronic diarrhea, abdominal pain, dyspepsia, nausea, diarrhea, epigastric abdominal pain Postoperative diagnosis: Normal colonoscopy, normal EGD SPECIMENS SUBMITTED: A: DUODENUM, BIOPSY B: STOMACH ANTRUM, BIOPSY C: GASTROESOPHAGEAL JUNCTION, BIOPSY D: ILEUM, BIOPSY E: RANDOM COLON, BIOPSY GROSS DESCRIPTION A. DUODENUM, BIOPSY: Received in formalin are 2 irregular phillips-pink soft tissue fragments measuring an average 0.3 x 0.3 x 0.2 cm which are submitted in toto in a single cassette labeled A1. B. STOMACH ANTRUM, BIOPSY: Received in formalin are 2 irregular phillips-pink soft tissue fragments measuring 0.2 x 0.2 x 0.2 cm and 0.4 x 0.2 x 0.1 cm which are submitted in toto in a single cassette labeled B1. C. GASTROESOPHAGEAL JUNCTION, BIOPSY: Received in formalin are 3 irregular phillips-pink soft tissue fragments varying in size from 0.2 x 0.2 x 0.1 cm up to 0.4 x 0.3 x 0.1 cm which are submitted in toto in a single cassette labeled C1. D. ILEUM, BIOPSY: Received in formalin are 2 irregular phillips-pink soft tissue fragments measuring on average 0.4 x 0.2 x 0.2 cm which are submitted in toto in a single cassette labeled D1. E. RANDOM COLON, BIOPSY: Received in formalin are multiple irregular phillips-pink soft tissue fragments varying in size from 0.1 x 0.1 x 0.1 cm up to 0.5 x 0.3 x 0.2 cm which are submitted in toto in a single cassette labeled E1. Grossed by: OLEG Recio PA([facility]) [id number] 01/21/2025 Grossing Staff: [id number] Patient Name: ALONDRA MALIN : 1985 (Age: 39) Sex: F Institution: [facility] Location: [facility] Date of Operation: 01/21/2025 Date of Reported: 01/22/2025 15:01 Results To: Avinash Ventura MD, BS Mariana Rogers PA-C [facility] us Avinash Ventura MD PATHOLOGY ORDERABLES Final R esult Performing Organization Address City/[facility] Co de Phone Number SEE NARRATIVE * POCT Glucose (01/12/2025 3:52 PM EDT) Glucose, POCT 81 70 - 100 mg/dL [facility] 01/12/2025 3:52 PM EDT 01/12/2025 3:54 PM EDT us Garrison Parks MD POINT OF CARE TEST ORDERABLES F inal Result Performing Organization Address City/[facility]/ZIP Co de Phone Number [facility] [address] [place] [address] * (ABNORMAL) Urinalysis w/reflex Urine Culture (01/12/2025 3:48 PM EDT) COLOR Yellow Yellow [facility] CLARITY Clear [facility] GLUCOSE Negative Negative [facility] BILI Negative Negative [facility] KETONES Trace(A) Negative [facility] SPECIFIC GRAVITY <1.005 1.005 - 1.030 [facility] BLOOD Trace(A) Negative [facility] PH 7.0 5.0 - 8.0 [facility] Protein-UA Negative Negative [facility] NITRITE Negative Negative [facility] Leukocyte esterase, ur Negative Negative [facility] Urine (Urine) 01/12/2025 3:4 8 PM EDT 01/12/2025 4:30 PM EDT us Santy Keenan MD, DPDCL URINE ORDERABLES Final Result Performing Organization Address [facility] Co de Phone Number [address] [address] * C-reactive protein, high sensitivity (01/12/2025 3:46 PM EDT) Pathologist [facility] CRP, HIGH SENSITIVITY 2.4 0.0 - 5.0 mg/L [facility] Comment: Interpretation: hsCRP level (mg/L) Relative Risk <1.0 Low 1.0 - 3.0 Average >3.0 High Neonates (0-3 weeks): 0.1 - 4.1 mg/L Children (2 months - 15 years): 0.1 - 2.8 mg/L Blood 01/12/2025 3:46 PM EDT 01/12/2025 3:52 PM EDT us Santy Keenan MD, DPDCL LAB BLOOD ORDERAB LES Final Result Performing Organization Address [facility]/ZIP Co de Phone Number [address] [address] * (ABNORMAL) TSH with reflex (01/12/2025 3:46 PM EDT) TSH 6.35(H) 0.27 - 4.20 uIU/mL [facility] Blood 01/12/2025 3:46 PM EDT 01/12/2025 3:52 PM EDT us Santy Keenan MD, AMENADCL LAB BLOOD ORDERAB LES Final Result Performing Organization Address [facility]/ZIP Co de Phone Number [address] [address] * Sedimentation rate (ESR) (01/12/2025 3:46 PM EDT) ESR 7 0 - 20 mm/h [facility] Blood 01/12/2025 3:46 PM EDT 01/12/2025 3:52 PM EDT us Santy Keenan MD, DPDCL LAB BLOOD ORDERAB LES Final Result Performing Organization Address [facility] Co de Phone Number [address] [address] * PT-INR (01/12/2025 3:46 PM EDT) PT 12.5 10.2 - 12.9 sec [facility] INR 1.0 0.9 - 1.1 [facility] Comment:Therapeutic range fo r oral Vitamin K antagonists: 2.0-3.5 Blood 01/12/2025 3:46 PM EDT 01/12/2025 3:52 PM EDT us Santy Keenan MD, DPDCL LAB BLOOD ORDERAB LES Final Result Performing Organization Address [facility] Co de Phone Number [address] [address] * Type and Screen (ABO,Rh,Antibody Screen) (01/12/2025 3:46 PM EDT) ABO/Rh B Positive [facility] Antibody Screen Negative [facility] Expiration Date of Sample 01/15/2025,2 359 [facility] Resulting Agency [facility] Blood 01/12/2025 3:46 PM EDT 01/12/2025 3:52 PM EDT us Santy Keenan MD, DPDCL BLOOD BANK TEST O RDERABLES Final Result [address] [address] * Troponin (01/12/2025 3:46 PM EDT) Troponin-T, HS Gen5 <6 0 - 9 ng/L [facility] Blood 01/12/2025 3:46 PM EDT 01/12/2025 3:52 PM EDT us [facility]enan MD, [facility]LOOD ORDERAB LES Final Result Performing Organization Address [facility]/ZIP Co de Phone Number [address] [address] * Free T4 (01/12/2025 3:46 PM EDT) FREE T4 1.0 0.9 - 1.7 ng/dL [facility] 01/12/2025 3:46 PM EDT 01/12/2025 3:52 PM EDT us Santy Keenan MD, DPDCL LAB BLOOD ORDERAB LES Final Result Performing Organization Address City/[facility]/ZIP Co de Phone Number [address] [address] * Magnesium (01/12/2025 3:46 PM EDT) Only the most recent of2 resultswithin the time period is included. MAGNESIUM 2.0 1.6 - 2.6 mg/dL [facility] Blood 01/12/2025 3:46 PM EDT 01/12/2025 3:52 PM EDT us Santy Keenan MD, DPDCL LAB BLOOD ORDERAB LES Final Result Performing Organization Address City/[facility]/ZIP Co de Phone Number [address] [address] * Hemoglobin A1c (01/12/2025 3:46 PM EDT) HEMOGLOBIN A1C 5.1 4.3 - 5.8 % [facility] Blood 01/12/2025 3:46 PM EDT 01/12/2025 3:52 PM EDT us Santy Keenan MD, [facility] LAB BLOOD ORDERAB LES Final Result Performing Organization Address City/[facility]/ZIP Co de Phone Number [address] [address] * (ABNORMAL) Lipid panel (01/12/2025 3:46 PM EDT) HDL 57 mg/dL [facility] Comment: Interpretation <40 mg/dL: Low HDL cholesterol (major risk factor for CHD) Greater than or equal to 60 mg/dL: High HDL cholesterol ( negative risk factor for CHD) HDL - cholesterol is affected by a number of factors, e.g. smoking, excerise, hormones, sex and age. CHOLESTEROL 181 0 - 240 mg/dL [facility] TRIGLYCERIDES 56 30 - 160 mg/dL [facility] LDL 113 50 - 129 mg/dL [facility] Comment: LDL levels in terms of risk for coronary heart disease: <100 mg/dL: Optimal 100-129 mg/dL: Near or above optimal 130-159 mg/dL: Borderline high 160-189 mg/dL: High >190 mg/dL: Very High CARDIAC RISK RATIO 3.2(L) 3.3 - 4.4 C [facility] Blood 01/12/2025 3:46 PM EDT 01/12/2025 3:51 PM EDT us Santy Keenan MD, DPHIL LAB BLOOD ORDERAB LES Final Result [address] [address] * CT ANGIO HEAD (CODE STROKE) W CONTRAST, CT ANGIO NECK W CONTRAST (01/12/2025 3:42 PM EDT) MGB IMG RADIO INSTALLER AUTOMOBILE COMMENT No acute intracranial hemorrhage or large territorial infarct ON LICENSE OF [facility] Anatomical Region Laterality Modality Neck Computed Tomogra phy 01/12/2025 3:43 PM EDT Impressions 01/12/2025 4:10 PM EDT 1. No large vessel occlusion, high-grade stenosis, aneurysm or dissection in the head or neck. A clinically significant result was initiated on 01/12/2025 3:46 PM, Message ID [id number]. ATTESTATION: I, Emanuel Solorio as teaching physician, have reviewed the images for this case and if necessary edited the report originally created by Karen Tejeda. Narrative 01/12/2025 4:[address] ANGIO HEAD (CODE STROKE) W CONTRAST, CT ANGIO NECK W CONTRAST Referring clinician's provided indication for this examination in Epic: * Dizziness, persistent/recurrent, cardiac or vascular cause suspected TECHNIQUE: * CTA of the head was performed before and after administration of intravenous contrast using tailored dose modulation techniques. Images were reconstructed in the axial, coronal, and sagittal planes, including angiographic image post-processing. 3D angiographic images with reformatting and post-processing reconstructions were performed and interpreted. * CTA of the neck was performed after administration of intravenous contrast using tailored dose modulation techniques. Images were reconstructed in the axial, coronal, and sagittal planes. 3D angiographic images with reformatting and post- processing reconstructions were performed and interpreted. COMPARISON: Noncontrast CT head from the same day. FINDINGS: CTA HEAD: No aneurysm or arteriovenous malformation. Intracranial internal carotid arteries: No occlusion or high grade stenosis. Anterior cerebral arteries: No occlusion or high grade stenosis. Middle cerebral arteries: No occlusion or high grade stenosis. Vertebrobasilar system: No occlusion or high grade stenosis. Posterior cerebral arteries: No occlusion or high grade stenosis. Venous: No dural sinus thrombosis. CTA NECK: Aortic Arch and Branch Vessel Origins: No high grade stenosis. Right Carotid Artery: No occlusion, high grade stenosis or dissection. Left Carotid Artery: No occlusion, high grade stenosis or dissection. Right Vertebral Artery: No occlusion, high grade stenosis or dissection. Left Vertebral Artery: No occlusion, high grade stenosis or dissection. Venous structures: The jugular veins enhance normally. NON-VASCULAR FINDINGS: Lungs and Airways: No acute abnormality. Soft tissues: No adenopathy. Bones: No significant abnormality. Procedure Note Emanuel Solorio MBBS - 01/12/2025 CT ANGIO HEAD (CODE STROKE) W CONTRAST, CT ANGIO NECK W CONTRAST Referring clinician's provided indication for this examination in Epic: *Dizziness, persistent/recurrent, cardiac or vascular cause suspected TECHNIQUE: * CTA of the head was performed before and after administration ofintravenous contrast using tailored dose modulation techniques. Imageswere reconstructed in the axial, coronal, and sagittal planes, includingangiographic image post- processing. 3D angiographic images withreformatting and post-processing reconstructions were performed andinterpreted. * CTA of the neck was performed after administration of intravenouscontrast using tailored dose modulation techniques. Images werereconstructed in the axial, coronal, and sagittal planes. 3D angiographicimages with reformatting and post-processing reconstructions wereperformed and interpreted. COMPARISON: Noncontrast CT head from the same day. FINDINGS: CTA HEAD: No aneurysm or arteriovenous malformation. Intracranial internal carotid arteries: No occlusion or high gradestenosis. Anterior cerebral arteries: No occlusion or high grade stenosis. Middle cerebral arteries: No occlusion or high grade stenosis. Vertebrobasilar system: No occlusion or high grade stenosis. Posterior cerebral arteries: No occlusion or high grade stenosis. Venous: No dural sinus thrombosis. CTA NECK: Aortic Arch and Branch Vessel Origins: No high grade stenosis. Right Carotid Artery: No occlusion, high grade stenosis or dissection. Left Carotid Artery: No occlusion, high grade stenosis or dissection. Right Vertebral Artery: No occlusion, high grade stenosis or dissection. Left Vertebral Artery: No occlusion, high grade stenosis or dissection. Venous structures: The jugular veins enhance normally. NON-VASCULAR FINDINGS: Lungs and Airways: No acute abnormality. Soft tissues: No adenopathy. Bones: No significant abnormality. IMPRESSION: 1. No large vessel occlusion, high-grade stenosis, aneurysm or dissectionin the head or neck. A clinically significant result was initiated on 01/12/2025 3:46 PM,Message ID [id number]. ATTESTATION: I, Emanuel Solorio as teaching physician, have reviewed theimages for this case and if necessary edited the report originally createdby Karen Tejeda. Santy John Keenan MD, DPHIL IMG CT HEAD/NECK Final Result * CT HEAD (CODE STROKE) WITHOUT CONTRAST (01/12/2025 3:28 PM EDT) MGB IMG RADIO INSTALLER AUTOMOBILE COMMENT No acute large territory infarct, intracranial hemorrhage, mass lesion or midline shift. Consider further evaluation with MRI brain if focal symptoms persist. ON LICENSE OF [facility] Anatomical Region Laterality Modality Head Computed Tomogra phy 01/12/2025 3:32 PM EDT Impressions 01/12/2025 3:38 PM EDT No acute large territory infarct, intracranial hemorrhage, mass lesion or midline shift. Consider further evaluation with MRI brain if focal symptoms persist. A clinically significant result was initiated on 01/12/2025 3:38 PM, Message ID [id number]. Narrative 01/12/2025 3:[address] HEAD (CODE STROKE) WITHOUT CONTRAST Referring clinician's provided indication for this examination in [facility]: * Neuro deficit, acute, stroke suspected TECHNIQUE: CT of the head was performed without intravenous contrast using tailored dose modulation techniques. Images were reconstructed in the axial, coronal, and sagittal planes. COMPARISON: None available. FINDINGS: Brain Parenchyma: No midline shift, mass effect, parenchymal hemorrhage, or evidence of acute territorial infarct. Ventricular System and Extra-Axial Spaces: No extra-axial fluid collections. Basal cisterns are patent. No hydrocephalus. Osseous and Extracranial Structures: No calvarial fracture or significant soft tissue hematoma. No significant paranasal sinus disease. No orbital abnormality. Procedure Note Emanuel Solorio MBBS - 01/12/2025 CT HEAD (CODE STROKE) WITHOUT CONTRAST Referring clinician's provided indication for this examination in Epic: *Neuro deficit, acute, stroke suspected TECHNIQUE: CT of the head was performed without intravenous contrast usingtailored dose modulation techniques. Images were reconstructed in theaxial, coronal, and sagittal planes. COMPARISON: None available. FINDINGS: Brain Parenchyma: No midline shift, mass effect, parenchymal hemorrhage,or evidence of acute territorial infarct. Ventricular System and Extra-Axial Spaces: No extra-axial fluidcollections. Basal cisterns are patent. No hydrocephalus. Osseous and Extracranial Structures: No calvarial fracture or significantsoft tissue hematoma. No significant paranasal sinus disease. No orbitalabnormality. IMPRESSION: No acute large territory infarct, intracranial hemorrhage, mass lesion ormidline shift. Consider further evaluation with MRI brain if focalsymptoms persist. A clinically significant result was initiated on 01/12/2025 3:38 PM,Message ID [id number]. us Santy Keenan MD, DPHIL IMG CT HEAD/NECK Final Result * HCG (Quantitative, Blood) (01/12/2025 3:06 PM EDT) HCG BETA 0.2 mIU/mL [facility] Comment: Interpretation: FEMALE: Negative: Less than or equal to 1 mIU/mL. 4 Weeks Post Conception: 9.5 - 750 mIU/mL. 12 Weeks Post Conception: [id number] - [id number] mIU/mL. Test Methodology Sammie [id number] Patient results determined by assays using different manufacturers or methods may not be comparable. Blood 01/12/2025 3:06 PM EDT 01/12/2025 3:36 PM EDT us Santy Keenan MD, DPHIL LAB BLOOD ORDERAB LES Final Result [facility] [address] [place] [address] * ECG 12-LEAD (01/12/2025 1:24 PM EDT) Ventricular Rate EKG/MIN 56 BPM [facility] Atrial Rate 56 BPM [facility] SD Interval 172 ms [facility] QRS Duration 68 ms [facility] QT Interval 440 ms [facility] QTC Interval 424 ms [facility] P Cyril 58 degrees [facility] R Wave [place]il 34 degrees [facility] T Wave [place] 31 degrees [facility] 01/12/2025 1:24 PM EDT 01/13/2025 1:56 PM EDT Narrative [facility] - 01/13/2025 1:56 PM EDT Sinus bradycardia Otherwise normal ECG No previous ECGs available Confirmed by Clive Cespedes ([id number]) on 01/13/2025 1:56:46 PM us Jordi Hughes MD ECG ORDERABLES Final Result [facility] * Pap Test (08/01/2023 12:00 AM EST) 08/01/2023 08/02/2023 10: 06 AM EST Narrative SEE NARRATIVE - 08/09/2023 2:46 PM EDT [address] [address] Community Coordinator [employer]: Jamaica Soliz MD METAL MODEL BUILDER Cytology Report FINAL DIAGNOSIS A. PAP SMEAR (SUREPATH) CE: SPECIMEN ADEQUACY: Satisfactory for evaluation; transformation zone present. INTERPRETATION: NEGATIVE FOR INTRAEPITHELIAL LESION OR MALIGNANCY. Electronically Signed Out By: TRACI Brooks(ASCP) The Pap test is a screening test primarily for squamous cancers and precursors and has associated false-negative and false-positive results. New technologies such as liquid-based preparations may decrease but will not eliminate all false-negative results. Regular sampling and follow-up of unexplained clinical signs and symptoms are recommended to minimize false negative results. PROCEDURES/ADDENDA HPV Testing (Requested) Ordered Date: 08/02/2023 A. PAP SMEAR (SUREPATH) CE: Human Papilloma Virus Test NEGATIVE for high-risk Human Papilloma Virus types 16, 18, 45 and the Other high risk probe set (Includes 31, 33, 35, 39, 51, 52, 56, 58, 59, 66, 68) Note: Testing performed by [employer] Onclarity HR-HPV analysis. Clinical correlation is advised. This HPV test was performed at [facility], [address] [place] [address]. This test has been FDA approved for both SurePath and ThinPrep cervical cytology specimens. The accuracy and precision of this test for all other specimen sources has been verified in the Cytopathology Laboratory of the [facility] and has not been cleared or approved by the U.S. Food and Drug Administration. Clinical correlation is advised. CLINICAL HISTORY Date of Last Menstrual Period: 07-26-2023 Contraceptive History: BCPs Other Clinical Conditions: Screening Pap SPECIMEN SOURCE A: PAP SMEAR (SUREPATH) CE Patient Name: DEAVERONIKAROSALINA : 1985 (Age: 38) Sex: F Institution: [facility] Location: [facility] Date of Collection: 08/01/2023 Date of Reported: 08/09/2023 14:46 Results to: Brandon Mackenzie MD, BS Brandon Mackenzie MD CYTOLOGY ORDERABLES Final Res ult Performing Organization Address City/[facility]/ZIP Co de Phone Number SEE NARRATIVE * Hepatitis C antibody, qualitative (11/13/2018 9:07 AM EDT) HCV Negative Negative [facility] Comment: This is a screening test and should be confirmed with molecular testing Blood 11/13/2018 9:07 AM EDT 11/13/2018 9:13 AM EDT Maegan Antonio CNM LAB BLOOD ORDERABLES Final Resul t [facility] [address] [place] [address] from Last 3 Months or Most Recently Relevant to Health Maintenance Insurance BLUE CROSS OUT OF STATE PPO BLUE CROSS OUT OF STATE PPO BLUE CROSS OUT OF [facility] PPO BLUE CROSS OUT OF STATE PPO BLUE CROSS OUT OF STATE PPO BLUE CROSS OUT OF STATE PPO Advance Directives For more information, please contact: [phone] (9AM - 5PM Arlen/[facility], Sunday-Sunday) Documents on File Type Date Recorded Patient Screen Cutter And Trimmer Expl anation Healthcare Proxy 06/30/2019 12:19 PM * Full Code (Presumed) (Latest Code Status on File) Date Activated Date Inactivated Comments 06/27/2019 4:13 AM 06/28/2019 6:20 PM * Full Code (Presumed) Date Activated Date Inactivated Comments 06/25/2019 7:52 PM 06/27/2019 4:13 AM Care Teams Blunger Machine Operator Relationship Specialty Start Date End Date Boyd Patterson DO [address] [place] [id number] PCP - General Internal Medicine 10/10/24 Reddy Rivera MD [address] [place] [address] Historical LMR Provider 03/12/17 Emmy Cartagena MD [address] [place] [id number] Historical LMR Provider 03/12/17 Carroll Rojas MD [address] [place] [address] Historical LMR Provider 03/12/17 Brandon Mackenzie MD [address] [place] [address] [email or web address] Historical LMR Provider 03/12/17 Francesca Linda MD [address] [place] [address] [email or web address] Historical LMR Provider 03/12/17 Boyd Patterson DO [address] [place] [address] [place] [address] [email or web address] Insurance Assigned Provider 01/31/25 Additional Source Comments The information contained in this document represents components of the legal health record. It is not the complete legal health record.[facility]
--- OUTSIDE RECORDS SUMMARY | 2025-02-18 20:39 | XMS_ITS | Encounter Summary ---
Author Organization [facility] Address [address] [place] [address] [place] [address] Phone Care Team Providers Care Sales Representative Gas Service Name Role Phone Reddy Rivera MD Unavailable Emmy Cartagena MD Unavailable [phone] Carroll Rojas MD Unavailable [phone] Brandon Mackenzie MD Unavailable [phone] Francesca Linda MD Unavailable [phone] Boyd Patterson DO Primary Care Provider [phone] Boyd Patterson DO Unavailable Encounter Details Date Type Department Care Team (Late st Contact Info) Description 01/12/2025 Procedure Pass [facility], Ct Scan - [address] [address] Social History Tobacco Use Types Packs/Day Years [...] housing situation today? I have melissa sing 10/10/2024 How many times have you move [...] as food, clothing, or medical care? No 01/12/2025 In the past 12 months have y ou been in a relationship with a person who hurts, threatens, or tries to control you? No 01/12/2025 Are you denied basic needs s uch as food, clothing, or medical care? No 01/12/2025 In the past 12 months have y ou been in a relationship with a person who hurts, threatens, or tries to control you? 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 Wish to be (Past 1 Month) No 025 1:31 PM EDT Paige Li RN 2. Non-Specific Active Suici moises Thoughts (Past 1 Month) No 01/12/2025 1:31 PM EDT Kali Li RN 6. Suicidal Behavior (Lifetime) No 5 1:31 PM EDT Paige Li RN documented as of this encounter Plan of Treatment Not on file documented as of this encounter Visit Diagnoses Not on filedocumented in this encounter Care Teams Sales Representative Gas Service Relationship Specialty Start Date End Date Boyd Patterson DO [address] [facility] [place] [address] PCP - General Internal Medicine 10/10/24 Reddy Rivera MD [address] [address] Historical LMR Provider 03/12/17 Emmy Cartagena MD [address] [address] Historical LMR Provider 03/12/17 Carroll Rojas MD [address] [place] [address] Historical LMR Provider 03/12/17 Brandon Mackenzie MD [address] [address] Historical LMR Provider 03/12/17 Francesca Linda MD [address] [address] Historical LMR Provider 03/12/17 Boyd Patterson DO [address] [place] [address] [email or web address] Insurance Assigned Provider 01/31/25 documented as of this encounter Additional Source Comments The information contained in this document represents components of the legal health record. It is not the complete legal health record.[facility]
--- OUTSIDE RECORDS SUMMARY | 2025-02-18 20:39 | XMS_ITS | Encounter Summary ---
Author Organization [facility] Address [address] [place] [address] [place] [address] Phone Care Team Providers Care Clarifier Operator Helper Name Role Phone Reddy Rivera MD Unavailable Emmy Cartagena MD Unavailable [phone] Carroll Rojas MD Unavailable [phone] Brandon Mackenize MD Unavailable [phone] Francesca Linda MD Unavailable [phone] Boyd Patterson DO Primary Care Provider [phone] Boyd Patterson DO Unavailable Encounter Details Date Type Department Care Team (Late st Contact Info) Description 01/12/2025 Procedure Pass [facility], Ct Scan - [address] [address] Social History Tobacco Use Types Packs/Day Years [...] 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 Not on file Not on file documented as of this encounter Functional Status * Calculated C-SSRS Risk Score (Lifetime/Recent) Answer Date of Assessment Author No Risk Indicated 01/12/2025 1:31 PM EDT Paige Li RN * [place] Suicide Severity Rating Scale (Screener/Recent Self-Report) Question [...] on filedocumented in this encounter Care Teams Clarifier Operator Helper Relationship Specialty Start Date End Date Boyd Patterson DO [address] [facility] [address] PCP - General Internal Medicine 10/10/24 Reddy Rivera MD [address] [address] Historical LMR Provider 03/12/17 Emmy Cartagena MD [address] [address] Historical LMR Provider 03/12/17 Carroll Rojas MD [address] [place] [address] Historical LMR Provider 03/12/17 Brandon Mackenzie MD [address] [address] Historical LMR Provider 03/12/17 Francesca Linda MD [address] [address] Historical LMR Provider 03/12/17 Boyd Patterson DO [address] [place] [address] [email or web address] Insurance Assigned Provider 01/31/25 documented as of this encounter Additional Source Comments The information contained in this document represents components of the legal health record. It is not the complete legal health record.[facility]
--- OUTSIDE RECORDS SUMMARY | 2025-02-18 20:39 | XMS_ITS | Encounter Summary ---
Author Organization [facility] Address [address] [place] [address] [place] [address] Phone Care Team Providers Care Mechanical Service Technician Name Role Phone Reddy Rivera MD Unavailable Emmy Cartagena MD Unavailable [phone] Carroll Rojas MD Unavailable [phone] Brandon Mackenzie MD Unavailable [phone] Francesca Linda MD Unavailable [phone] Boyd Patterson DO Primary Care Provider [phone] Boyd Patterson DO Unavailable Encounter Details Date Type Department Care Team (Late st Contact Info) Description 10/10/2024 Procedure Pass [facility], Ct Scan - [address] [address] Social History Tobacco Use Types Packs/Day Years [...] 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 Wish to be (Past 1 Month) No 10/10/2024 9:33 AM EDT Araseli Weaver RN 2. Non-Specific Active Suici moises Thoughts (Past 1 Month) No 10/10/2024 9:33 AM EDT Araseli Weaver, TATYANA 6. Suicidal Behavior (Lifetime) No 9:33 AM EDT Araseli Weaver, RN documented as of this encounter Plan of Treatment Not on file documented as of this encounter Visit Diagnoses Not on filedocumented in this encounter Care Teams Mechanical Service Technician Relationship Specialty Start Date End Date Boyd Patterson DO [address] [place] [address] [place] [address] PCP - General Internal Medicine 10/10/24 Reddy Rivera MD [address] [address] Historical LMR Provider 03/12/17 Emmy Cartagena MD [address] [address] Historical LMR Provider 03/12/17 Carroll Rojas MD [address] [place] [address] Historical LMR Provider 03/12/17 Brandon Mackenzie MD [address] [address] Historical LMR Provider 03/12/17 Francesca Linda MD [address] [address] Historical LMR Provider 03/12/17 Boyd Patterson DO [address] [place] [address] [email or web address] Insurance Assigned Provider 01/31/25 documented as of this encounter Additional Source Comments The information contained in this document represents components of the legal health record. It is not the complete legal health record.[facility]
--- OUTSIDE RECORDS SUMMARY | 2025-02-18 20:39 | XMS_ITS | Encounter Summary ---
Author Organization [facility] Address [address] [place] [address] Phone Care Team Providers Care Adobe Layer Name Role Phone Boyd Patterson DO Unavailable Felisa Barr CNM Unavailable Yamilka Lacey COPY DIRECTOR Unavailable Reddy Rivera MD Unavailable Catalina Turk COPY DIRECTOR Unavailable [phone] Emmy Cartagena MD Unavailable Sariah Fierro COPY DIRECTOR Unavailable Carroll Rojas MD Unavailable Lacy Almanza MD Unavailable [phone] Brandon Mackenzie MD Unavailable Felisa Barone RDCS Unavailable [email or web address] Arianna Barnes MD Unavailable [phone] Francesca Linda MD Unavailable Boyd Patterson DO Primary Care Provider [phone] Boyd Patterson DO Primary Care Provider [phone] Boyd Patterson DO Unavailable Encounter Details Date Type Department Care Team (Late st Contact Info) Description 06/05/2019 Ancillary Orders [facility] [address] [place] [address] [place] [address] Reddy Rivera MD [address] [place] [address], [address] [place] [address] [email or web address] Uterine size date discrepancy , third trimester Social History Tobacco Use Types Packs/Day Years Used Date Smoking Tobacco: Former Smokeless Tobacco: Never Alcohol Use Standard Drinks/Week Comments Not Currently 0 (1 standard drink = 0.6 oz pur e alcohol) Comments Yes Sex and Gender Information Value Date Recorded Sex Assigned at Female 10/10/2024 9:36 AM EDT Legal Sex Female 5:31 PM EDT Gender Identity Female 10/10/2024 9:36 AM EDT Sexual Orientation Not on file 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 The SRINIVASA is normal. Narrative 06/05/2019 9:21 AM EST INDICATION: Uterine size/date discrepancy DATING: Exam Date: [id number] Last Menstruation: 09/29/2018 Estimated Delivery Date: July 06, 2019 Ultrasound Age: (35)w(01)d Gestational Age by LMP: (35)w(04)d Estimated Delivery by AUA: 2019 ANATOMY SCAN: Biparietal Diameter: 8.59 cm (34)w(05)d 29% % Hadlock Head Circumference: 32.09 cm (36)w(02)d 33% % Hadlock Abdominal Circumference: 30.74 cm (34)w(05)d 33% % Hadlock Femur Length: 6.72 cm (34)w(04)d 19% % Hadlock HC/AC Ratio: 1.4 FL/BPD Ratio: 78 % FL/AC Ratio: 22 % Estimated Weight: 5 lb 9 oz 2520 gm 28th % Hadlock Heart Activity: Present Heart Rate: 147 bpm Presentation: Vertex Amniotic Fluid: Normal Maximum Vertical Pocket: 3.9 cm Placenta: Posterior Placental Grade: 2 TECH COMMENTS: De [place] Cruz . EFW = 28th%. Active fetus with normal fluid. Transabdominal scanning was performed. Procedure Note Brandon Mackenzie MD - 06/05/2019 INDICATION: Uterine size/date discrepancy DATING: Exam Date: [id number] Last Menstruation: 09/29/2018 Estimated Delivery Date: July 06, 2019 Ultrasound Age: (35)w(01)d Gestational Age by LMP: (35)w(04)d Estimated Delivery by AUA: 2019 ANATOMY SCAN: Biparietal Diameter: 8.59 cm (34)w(05)d 29% % Had[place] Head Circumference: 32.09 cm (36)w(02)d 33% % Hadlock Abdominal Circumference: 30.74 cm (34)w(05)d 33% % Hadlock Femur Length: 6.72 cm (34)w(04)d 19% % Hadlock HC/AC Ratio: 1.4 FL/BPD Ratio: 78 % FL/AC Ratio: 22 % Estimated Weight: 5 lb 9 oz 2520 gm 28th % Hadlock Heart Activity: Present Heart Rate: 147 bpm Presentation: Vertex Amniotic Fluid: Normal Maximum Vertical Pocket: 3.9 cm Placenta: Posterior Placental Grade: 2 TECH COMMENTS: [place] . EFW = 28th%. Active fetus with normal fluid. Transabdominal scanning was performed. IMPRESSION: Single live IUP in vertex presentation with an EFW of 2520 grams which isat the 28th percentile. The SRINIVASA is normal. Reddy Rivera MD [facility] Final Result documented in this encounter Visit Diagnoses Diagnosis Uterine size date discrepancy , third trimester Uterine size date discrepancy , third trimester documented in this encounter Care Teams Adobe Layer Relationship Specialty Start Date End Date Boyd Patterson DO [address] [place] [address] PCP - General 05/31/17 10/09/24 Leonardo Boyd DykesDO [address] [facility] [place] [address] PCP - General Internal Medicine 10/10/24 Boyd Patterson DO [address] [facility] [place] [address] Historical LMR Provider 03/12/17 06/04/21 Felisa Barr CNM [address] [place] [address] Historical LMR Provider 03/12/17 2 Yamilka Lacey NP [address] [place] [address] Historical LMR Provider 03/12/17 2 Reddy Rivera MD [address] [place] [address] Historical LMR Provider 03/12/17 Catalina Turk NP [address] [place] [address] Historical LMR Provider 03/12/17 06/04/21 Emmy Cartagena MD [address] [place] [address] Historical LMR Provider 03/12/17 Sariah Fierro NP [address] [place] [address] Historical LMR Provider 03/12/17 2 Carroll Rojas MD [address] [place] [address] Historical LMR Provider 03/12/17 Lacy Almanza MD [address] [place] [address] Historical LMR Provider 03/12/17 2 Brandon Mackenzie MD [address] [place] [address] Historical LMR Provider 03/12/17 Felisa Barone, GRADYCS Historical LMR Provider 03/12/17 06/04/21 Arianna Barnes MD [address] [place] [address] Historical LMR Provider 03/12/17 2 Francesca Linda MD [address] [place] [address] Historical LMR Provider 03/12/17 Boyd Patterson DO [address] [place] [address] Insurance Assigned Provider 01/31/25 documented as of this encounter Additional Source Comments The information contained in this document represents components of the legal health record. It is not the complete legal health record.[facility]
--- OUTSIDE RECORDS SUMMARY | 2025-02-18 20:39 | XMS_ITS | Encounter Summary ---
Author Organization [facility] Address [address] [place] [address] [place] [address] Phone Care Team Providers Care Wrecking Crane Engine Operator Name Role Phone Reddy Rivera MD Unavailable Emmy Cartagena MD Unavailable [phone] Carroll Rojas MD Unavailable [phone] Brandon Mackenzie MD Unavailable [phone] Francesca Linda MD Unavailable [phone] Boyd Patterson DO Primary Care Provider [phone] Boyd Patterson DO Unavailable Encounter Details Date Type Department Care Team (Late st Contact Info) Description 02/13/2025 Telephone [facility] at [address] [id number] Nessa Nicole, INSTRUMENT LENS GRINDER [address] [place] [address] [email or web address] Social History Tobacco Use Types Packs/Day Years Used Date Smoking Tobacco: Former Smokeless Tobacco: Never Alcohol Use Standard Drinks/Week Comments Not Currently 0 (1 standard drink = 0.6 oz pur e alcohol) Education Answer Date Recorded Are you interested in more education? Not on dixei e 09/22/2022 Are you concerned about learning? 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 OK to leave voicemail. Called back and LVM that sensitivity is not back but it is likely nitrofurantoin is the correctantibiotic. We will call if sensitivity indicates otherwise. documented in this encounter Plan of Treatment Not on file documented as of this encounter Visit Diagnoses Not on filedocumented in this encounter Care Teams Wrecking Crane Engine Operator Relationship Specialty Start Date End Date Boyd Patterson DO [address] [facility] [place] [address] PCP - General Internal Medicine 10/10/24 Reddy Rivera MD [address] [address] Historical LMR Provider 03/12/17 Emmy Cartagena MD [address] [address] [email or web address] Historical LMR Provider 03/12/17 Carroll Rojas MD [address] [place] [address] Historical LMR Provider 03/12/17 Brandon Mackenzie MD [address] [address] Historical LMR Provider 03/12/17 Francesca Linda MD [address] [address] Historical LMR Provider 03/12/17 Boyd Patterson DO [address] [place] [address] [email or web address] Insurance Assigned Provider 01/31/25 documented as of this encounter Additional Source Comments The information contained in this document represents components of the legal health record. It is not the complete legal health record.[facility]
[2025-02-18 21:00] VITALS: BP 142/86; PULSE 77; RESP 18; TEMP 36.9; O2SAT 99; BMI 31.3
--- NOTE | 2025-02-19 01:40 | PC.ADMIT ---
Dimitrios is a 39 year old female who was admitted to M3 at 20:50 from [facility] for MDD having SI. She signed a CV upon arrival to the unit. This is her first inpatient hospitalization. She presented to [facility] due to worsening depression over the past 3 months. In addition she reported SI with plans of driving her car off a bridge or overdosing on medication. The patient stated she has a lot on her plate. She states that she feels overwhelmed. 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 Additional stressors include her mother passing away last year, and her brother committed suicide in 2018. She lives in an apartment with her and 2 daughters, which she states is a safe, stable, and supportive relationship. 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 Patient presented today for SI with a plan to take a bottle of Advil. She says that she opened the bottle and took off the seal when she looked over and saw her childrens' shoes on the floor knowing that they were upstairs and sleeping. She is tearful and upset thinking that she is a bad mom and continues to tell herself that she needs to be there for her children. She feels that she is meant to be here so she can receive mental health help. Patient reports dealing with depression for most of her life. She has a history of self harm via cutting along with a SA of overdosing on medication, both were about 20 years ago when a teenager. She never told anyone or sought out medical care. She does not see a psychiatrist or therapist, but does report a history of being prescribed Prozac and discontinued it as she did not like how it made her feel. Patient is A&O X3 and denies having any current SI at this time. The only health issue reported is frequent UTI's with a course of abx that ended this past week. Patient reports unintentional weight loss of 45lbs in the past six months which she believes is due to stress. She does not smoke, drink alcohol, or use any illicit drugs. She does report however that she vapes marijuana daily at night to try to numb her feelings and sleep. Skin check was unremarkable, patient has a nose piercing and a tattoo to the back of her neck. Lab work from [facility] show baseline anemia, otherwise unremarkable.
[2025-02-19 07:00] VITALS: BMI 31.8
[2025-02-19 08:00] VITALS: BP 122/65; PULSE 79; RESP 18; TEMP 37.1; O2SAT 100
--- NOTE | 2025-02-19 08:26 | HO.PM.IMCN ---
History of Present Illness Data of Consult Service Date: 02/19/25 Primary Care Provider: Boyd Patterson MD [facility] Reason for consult: Medical management 39-year-old female with past medical history of allergic rhinitis, anxiety, thyroid disorder presented to the [facility] ER for major depression with suicidal ideation. In the ED her lab work demonstrated mild anemia, no electrolyte abnormalities, no evidence of renal or liver abnormality. Negative alcohol, negative HCG. Tox screen positive for marijuana, which she uses in Vape pen. On exam she denies any shortness of breath, dizziness, lightheadedness or any other concerning symptoms. No medical concerns. Review of Systems Review of Systems: Denies any shortness of breath, chest pain, dizziness, lightheadedness, abdominal pain or discomfort, nausea vomiting or diarrhea PMFSH Social History Household Members: Spouse and Children Housing: Apartment Do you presently have visiting nurse or other home services: No Patient Tobacco Use Status: Never used Tobacco Smoked in Last 30 Days: No e-Cigarette/Vaping Use: Never Used Patient Interested in Nicotine Replacement: No Patient Given Instructions on How to Stop Smoking: No Second Hand Smoke Exposure: No Currently Displaying Signs/Symptoms of Drug Intoxication Withdrawal: No Have you been hit, kicked, punched, or otherwise hurt by someone within the past year? If so, by whom?: No Do you feel safe in your current relationship?: Yes Is there a partner from a previous relationship who is making you feel unsafe now?: No Are you made to feel afraid or neglected: No Advance Directives: No Advance Directives Information Provided: Yes Do you have thoughts of harming others: None Do you have a plan to hurt others: No Plan Recently lost weight without trying: Yes How much weight loss: 34pounds or more Eating poorly because of decreased appetite: Yes Nutrition screen score: 7 Nutrition Risks: No Nutritional Risk Patient : No : No Poor oral hygiene: No service: No Sexual orientation: Straight/Heterosexual Meds Allergies Allergy/AdvReac Type Severity Reaction Status Date / Time acetaminophen (From Pamprin Allergy Hives Verified 02/18/25 21:29 Max) aspirin (From Pamprin Max) Allergy Hives Verified 02/18/25 21:29 caffeine (From Pamprin Max) Allergy Hives Verified 02/18/25 21:29 pamabrom (From Midol) Allergy Hives Verified 02/18/25 21:29 Active Medications: Current Medications Al Hydroxide/Mg Hydroxide (Magnesium Hydrox/Alum Hydrox 30 Ml Oral.Susp) 30 ml PO Q6H PRN PRN Reason: Heartburn/Nausea Famotidine (Famotidine 20 Mg Tablet) 40 mg PO DAILY PRN PRN Reason: Indigestion Fluticasone Propionate (Fluticasone Propionate Nasal 16 Gm [place]) 1 spray NOSTRIL-B DAILY PRN PRN Reason: nasal congestion Hydroxyzine HCl (Hydroxyzine Hcl 25 Mg Tablet) 25 mg PO Q6H PRN PRN Reason: mild anxiety Magnesium Hydroxide (Milk Of Magnesia 30 Ml Oral.Susp) 30 ml PO DAILY PRN PRN Reason: Constipation Nicotine (Nicotine 21 Mg Patch.Td24) 21 mg TRANSDERMA DAILY PRN PRN Reason: nicotine craving Nicotine Polacrilex (Nicotine Polacrilex 2 Mg Gum) 2 mg BUCCAL Q2H PRN PRN Reason: Nicotine Cravings Olanzapine (Olanzapine 5 Mg Tablet) 5 mg PO BID PRN PRN Reason: agitation Trazodone HCl (Trazodone Hcl 50 Mg Tablet) 50 mg PO BEDTIME MRX1 PRN PRN Reason: Insomnia Home Medications ?Medication ?Instructions ?Recorded ?Confirmed ?Last Taken ?Type famotidine 40 mg tablet 40 mg PO DAILY PRN Indigestion 02/18/25 02/18/25 Unknown History fluticasone propionate 50 intranasal PRN unknown 02/18/25 Unknown History mcg/actuation nasal spray,suspension Physical Exam Vital Signs and Narrative: Vital Signs: Last Vital Signs Temp 98.7 F 02/19/25 08:00 Pulse 79 02/19/25 08:00 Resp 18 02/19/25 08:00 BP 122/65 02/19/25 08:00 Pulse Ox 100 02/19/25 08:00 O2 Del Method Room Air 02/19/25 08:00 BMI result Body Mass Index 31.3 CONST: Alert and oriented, in NAD. Well nourished HEENT: Normocephalic, atraumatic, MMM, Eyes clear, Neck supple RESP: Lungs clear, RRR even and regular HEART:,RRR, S1, S2. No edema GI:Abdomen Soft NT, ND. + BS times four :Deferred SKIN: Warm dry and intact, no visible lesions or rashes NEURO:CN II-XII Intact bilaterally, Sensation intact. Speech clear PSYCH: Normal affect Results Labs 02/19/25 07:30 Assessment and Plan (1) Allergic rhinitis: Status: Acute Plan 39-year-old female with a past medical history of allergic rhinitis, anxiety, thyroid disorder, depression with suicide ideation was admitted to inpatient psych for stabilization. Depression/anxiety/suicidal ideation Treatment per psychiatric team Thyroid disorder Recent TSH 5.99 with normal free T4 Not reportedly taking any thyroid medications Follow every 3 months Allergic rhinitis Takes Flonase as needed Thank you for allowing me to participate in the care of this patient. Will follow as needed, please notify medical provider with any changes in condition or concerns.
[2025-02-19 08:33] LABS: Alanine Aminotransferase 13 U/L (0-31); Albumin Level 4.4 g/dL (3.5-5.0); Alkaline Phosphatase 54 U/L (39-117); Anion Gap 10 (12-20); Aspartate Amino Transferase 23 U/L (5-31); Blood Urea Nitrogen 10 mg/dL (9-16); Calcium 9.2 mg/dL (8.4-10.2); Carbon Dioxide 26 mmol/L (22-29); Chloride 108 mmol/L (96-108); Cholesterol 181 mg/dL (<200); Creatinine Clr Calc Pharmacy 122.1; Estimated Glomerular Filt Rate > 60; HDL Cholesterol 51 mg/dL (>40); Potassium 4.0 mmol/L (3.3-5.1); Sodium 140 mmol/L (135-145); Total Protein 6.9 g/dL (6.5-8.0); Triglycerides 64 mg/dL (<150)
--- NOTE | 2025-02-19 08:40 | P.HPPS_ITS ---
HPI Date of Service: 02/19/25 Chief Complaint: Major Depressive Disorder,rec severe Sources of Information: patient interviewed, chart reviewed and crisis/core team assessment reviewed HPI Subjective Notes: [place] Warning and Conditional Voluntary Narrative: Patient is a 39 year old female with hx of MDD, PTSD who presented to ER d/t suicidal ideation secondary to increased depression and life stressors. Per crisis report, patient presented to emergency room for suicidal ideation. She states she has been dealing with depression for most of her life and over the past month she has been having suicidal thoughts. She reports yesterday she thought of overdosing on a bottle of Advil. Patient reports the only thing that stopped her was knowing her 2 children were upstairs sleeping. History of overdose as a teenager on pills but never told anyone. Does not have outpatient psychiatric providers. History of taking Prozac but discontinued taking it due to how it made her feel. Denies HI/VH/AH. She reports intermittent marijuana use. U tox positive for marijuana. Denies any other substance use. Patient reports suicidal ideation with thoughts of driving her car off a bridge or overdosing on medication. She reports feeling overwhelmed due to being the sole caregiver for her ill father. Additional stressors include ongoing GI issues which cause her to vomit daily. She reports poor sleep and appetite. During admission assessment, pt presents alert and oriented x3. calm and cooperative. Patient reports feeling depressed; patient stated, I have been feeling suicidal everyday for the past 3 months. I'm not handling emotions like I should be. Having lost someone to suicide I don't want my kids and to go through that . Patient reports she believes she did not have a good childhood ; patient stated, my father would tell me how fat I was and now I have to take care of him. My mom would gaslight me my entire life. I was always walking on eggshells . Patient denies HI/VH/AH. She reports having frequent mood swings, being hypersexual, having excessive energy at times and spending lots of money . Patient reports history of taking Prozac up to 60 mg and felt it made her feel numb . Discussed starting on lithium; risks/benefits reviewed, patient agreed to trial. Patient reports she would like referrals to outpatient psychiatric providers. Past Psychiatric History: denies hx of inpatient psychiatric admission. does not have outpatient psychiatric providers. hx of SA: 2x at 19 y/o via OD on Ibuprofen. hx of SIB: via cutting at 19 y/o. medication hx: Prozac 60mg (made her feel numb ). Medical Evaluation Reviewed: Yes [facility] Family History: Brother: Completed suicide in 2018 Brother: Schizoaffective disorder Social History: . Two children( 11 & 5 y/o). Works full-time as a medical record technician. Substance History: Marijuana use. Denies any other substance use. Trauma History: Yes Diagnostics Vital Signs (24Hr): Vital Signs - 24 hr 02/18/25 21:00 02/19/25 08:00 Temperature 98.4 F 98.7 F Pulse Rate 77 79 Respiratory Rate 18 18 Blood Pressure 142/86 H 122/65 Pulse Oximetry 99 100 Oxygen Delivery Method Room Air Room Air BMI result Body Mass Index 31.3 Labs 02/19/25 07:30 Labs: Laboratory Results - last 48 hr 02/19/25 07:30 Sodium 140 Potassium 4.0 Chloride 108 Carbon Dioxide 26 Anion Gap 10 L BUN 10 Creatinine 0.68 Estim Creat Clear Calc 122.1 Estimated GFR > 60 Random Glucose 88 Calcium 9.2 Total Bilirubin 0.6 AST 23 ALT 13 Alkaline Phosphatase 54 Total Protein 6.9 Albumin 4.4 Triglycerides 64 Cholesterol 181 LDL Cholesterol, Calc 118 H HDL Cholesterol 51 Meds/Allergies Meds Home Medications ?Medication ?Instructions ?Recorded ?Confirmed ?Type famotidine 40 mg tablet 40 mg PO DAILY PRN Indigesti on 02/18/25 02/18/25 History fluticasone propionate 50 intranasal PRN unknown 02/18 History mcg/actuation nasal spray,suspension Allergies Allergies Allergy/AdvReac Type Severity Reaction Status Date / Time acetaminophen (From Pamprin Allergy Hives Verified 02/18/25 21:29 Max) aspirin (From Pamprin Max) Allergy Hives Verified 02/18/25 21:29 caffeine (From Pamprin Max) Allergy Hives Verified 02/18/25 21:29 pamabrom (From Midol) Allergy Hives Verified 02/18/25 21:29 Mental Status Exam Mental Status Exam Narrative: Pt is alert and oriented; behavior is cooperative and calm; dressed in casual attire mood is described as depressed ; eye contact appropriate; Speech is normal rate, volume and not pressured; thought process is organized and goal directed; Thought content is on tx; denies HI/VH/AH. Patient reports suicidal ideation with plan to overdose on medication. Assessment & Plan Assessment & Plan (1) Bipolar 1 disorder, depressed: Status: Acute Code(s): F31.9 - Bipolar disorder, unspecified (2) PTSD (post-traumatic stress disorder): Status: Acute Code(s): F43.10 - Post-traumatic stress disorder, unspecified Plan Patient is a 39 year old female with hx of MDD, PTSD who presented to ER d/t suicidal ideation secondary to increased depression and life stressors. Plan: CV 15 minute safety checks obtain collateral Start: [place] ER 450mg PO bedtime referral to outpatient psychiatric providers encourage groups discharge planning Patient educated on: diagnosis and medication risk/benefits Reason for continued inpatient stay Substantial Risk for: harm to self and med/psych decompensation Statement Statement: I have reviewed the history and physical and performed a pertinent examination on my patient. No changes have occurred unless specified. If the History and Physical was not performed prior to admission, the Hospitalist's service will be consulted for completing the admission physical. Time Spent With Patient Time: Total time managing care of this patient today _60___ minutes.
[2025-02-19 08:50] LABS: Free T4 (Free Thyroxine) 1.02 ng/dL (0.71-1.85); Thyroid Stimulating Hormone 5.99 uIU/mL (0.32-4.0)
[2025-02-19 10:32] LABS: Hemoglobin A1C 104.9532 umol/L; Total Hemoglobin (HGBA1C) 3107.2195 umol/L
[2025-02-19 20:00] VITALS: BP 129/65; PULSE 63; RESP 16; TEMP 36.7; O2SAT 100
[2025-02-20 07:36] VITALS: BP 128/71; PULSE 63; RESP 18; TEMP 36.5; O2SAT 100
--- NOTE | 2025-02-20 11:18 | HO.PSYCHPN ---
Subjective Subjective Date of Service: 02/20/25 Reason For Visit: Major Depressive Disorder,rec severe Subjective Notes: Conditional Voluntary Interim History: Pt is feeling much better today since she's been able to focus on her own self care, rather than worrying about everyone else. She had felt extremely overwhelmed w/ trying to balance work, parenting, & caring for her father but felt like it was a sign of weakness to ask for help. She now realizes that she has multiple supports who can help her. Her has been very supportive. Relationshp w/ her parents has been complicated. Dad has h/o alcohol use d/o, has engaged in self destructive behaviors and has only wanted pt to help him out. Pt discussed her mother's decline from esophageal ca and going to work on the day she since her co-worker had called out already. Discussed importance of boundaries and asking for help. Pt denies SI. Sleep is stable-- reports only sleeping ~4 hrs/night usually. Took Vistaril last night w/ fair effect w/ sleep initiation Plans to try trazodone tonight Had first dose of lithium last night and denies any SE. Medication Compliance: Yes Side effects from medications: No Attending Groups: Yes Review of Systems Acute medical concerns: No Medical Review of Systems: unchanged Mental Status Exam Mental Status Exam Narrative: Appearance: Casually dressed. Grooming/hygiene wnl. Good eye contact Attitude:Cooperative Speech: Fluent and wnl in regard to volume, tone, prosody Motor activity: Calm and without any tics, tremors or dyskinesias. Steady gait Mood: as noted above Affect: appropriate, reactive, generally bright Thought process: goal directed and without evidence of formal thought disorder Thought content: as noted above. Future oriented Perception: Denies AH/VH and does not appear to respond to internal stimuli Alert/oriented in all spheres Cognition grossly intact Insight: intact Judgment: intact Diagnostics Vital Signs (24Hr): Vital Signs - 24 hr 02/19/25 20:00 02/20/25 07:36 Temperature 98.1 F 97.7 F Pulse Rate 63 63 Respiratory Rate 16 18 Blood Pressure 129/65 128/71 Pulse Oximetry 100 100 Oxygen Delivery Method Room Air Room Air BMI result Body Mass Index 31.8 Labs 02/19/25 07:30 Labs: Laboratory Results - last 48 hr 02/19/25 07:30 Sodium 140 Potassium 4.0 Chloride 108 Carbon Dioxide 26 Anion Gap 10 L BUN 10 Creatinine 0.68 Estim Creat Clear Calc 122.1 Estimated GFR > 60 Random Glucose 88 Estimat Average Glucose 103 Hemoglobin A1c % 5.2 Calcium 9.2 Total Bilirubin 0.6 AST 23 ALT 13 Alkaline Phosphatase 54 Total Protein 6.9 Albumin 4.4 Triglycerides 64 Cholesterol 181 LDL Cholesterol, Calc 118 H HDL Cholesterol 51 TSH 5.99 H Free T4 1.02 Medications Medications Current Medications Al Hydroxide/Mg Hydroxide (Magnesium Hydrox/Alum Hydrox 30 Ml Oral.Susp) 30 ml PO Q6H PRN PRN Reason: Heartburn/Nausea Famotidine (Famotidine 20 Mg Tablet) 40 mg PO DAILY PRN PRN Reason: Indigestion Fluticasone Propionate (Fluticasone Propionate Nasal 16 Gm [place]) 1 spray NOSTRIL-B DAILY PRN PRN Reason: nasal congestion Hydroxyzine HCl (Hydroxyzine Hcl 25 Mg Tablet) 25 mg PO Q6H PRN PRN Reason: mild anxiety Last Admin: 02/19/25 11:20 Dose: 25 mg [place] Carbonate ([place] Carbonate Er 450 Mg Tablet.Er) 450 mg PO BEDTIME SILVANA Last Admin: 02/19/25 20:33 Dose: 450 mg Magnesium Hydroxide (Milk Of Magnesia 30 Ml Oral.Susp) 30 ml PO DAILY PRN PRN Reason: Constipation Nicotine (Nicotine 21 Mg Patch.Td24) 21 mg TRANSDERMA DAILY PRN PRN Reason: nicotine craving Nicotine Polacrilex (Nicotine Polacrilex 2 Mg Gum) 2 mg BUCCAL Q2H PRN PRN Reason: Nicotine Cravings Olanzapine (Olanzapine 5 Mg Tablet) 5 mg PO BID PRN PRN Reason: agitation Trazodone HCl (Trazodone Hcl 50 Mg Tablet) 50 mg PO BEDTIME MRX1 PRN PRN Reason: Insomnia Allergies Allergies Allergy/AdvReac Type Severity Reaction Status Date / Time acetaminophen (From Pamprin Allergy Hives Verified 02/18/25 21:29 Max) aspirin (From Pamprin Max) Allergy Hives Verified 02/18/25 21:29 caffeine (From Pamprin Max) Allergy Hives Verified 02/18/25 21:29 pamabrom (From Midol) Allergy Hives Verified 02/18/25 21:29 Assessment & Plan Assessment & Plan (1) Bipolar 1 disorder, depressed: Status: Acute Code(s): F31.9 - Bipolar disorder, unspecified (2) PTSD (post-traumatic stress disorder): Status: Acute Code(s): F43.10 - Post-traumatic stress disorder, unspecified Plan Patient is a 39 year old female with hx of MDD, PTSD who presented to ER d/t suicidal ideation secondary to increased depression and life stressors. Plan: CV 15 minute safety checks obtain collateral Continue current med regimen: [place] ER 450mg PO bedtime-- started 02/19. Check level am of 02/25 prn hydroxyzine for anxiety prn trazodone for insomnia referral to outpatient psychiatric providers encourage groups discharge planning Patient educated on: medication risk/benefits and therapeutic strategies Informed Consent: understands Reason for continued inpatient stay Substantial Risk for: harm to self and inability to function Time Spent With Patient Time: Total time managing care of this patient today 30 minutes.
[2025-02-20 20:10] VITALS: BP 144/70; PULSE 68; RESP 16; TEMP 37.2; O2SAT 99
[2025-02-21 07:38] VITALS: BP 133/75; PULSE 74; RESP 16; TEMP 36.8; O2SAT 100
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
[2025-02-21 19:18] VITALS: BP 132/80; PULSE 78; RESP 18; TEMP 37.1; O2SAT 100
--- NOTE | 2025-02-21 20:18 | P.PNPSI_ITS ---
Subjective Subjective Date of Service: 02/21/25 Reason For Visit: Major Depressive Disorder,rec severe Interim History: slept well with trazodone. no complaints or requests. per staff, pleasant, social. visible. feeling better. traz 50 slept well. TSH 5.99. taking meds. slept 7 hours. Mental Status Exam Mental Status Exam Narrative: Appearance: Casually dressed. Grooming/hygiene wnl. Good eye contact Attitude:Cooperative Speech: Fluent and wnl in regard to volume, tone, prosody Motor activity: Calm and without any tics, tremors or dyskinesias. Steady gait Mood: as noted above Affect: appropriate, reactive, generally bright Thought process: goal directed and without evidence of formal thought disorder Thought content: as noted above. Future oriented Perception: Denies AH/VH and does not appear to respond to internal stimuli Alert/oriented in all spheres Cognition grossly intact Insight: intact Judgment: intact Diagnostics Vital Signs (24Hr): Vital Signs - 24 hr 02/21/25 07:38 Temperature 98.3 F Pulse Rate 74 Respiratory Rate 16 Blood Pressure 133/75 Pulse Oximetry 100 Oxygen Delivery Method Room Air BMI result Body Mass Index 31.8 Labs 02/19/25 07:30 Medications Medications Current Medications Al Hydroxide/Mg Hydroxide (Magnesium Hydrox/Alum Hydrox 30 Ml Oral.Susp) 30 ml PO Q6H PRN PRN Reason: Heartburn/Nausea Famotidine (Famotidine 20 Mg Tablet) 40 mg PO DAILY PRN PRN Reason: Indigestion Fluticasone Propionate (Fluticasone Propionate Nasal 16 Gm [place]) 1 spray NOSTRIL-B DAILY PRN PRN Reason: nasal congestion Hydroxyzine HCl (Hydroxyzine Hcl 25 Mg Tablet) 25 mg PO Q6H PRN PRN Reason: mild anxiety Last Admin: 02/21/25 10:17 Dose: 25 mg [place] Carbonate ([place] Carbonate Er 450 Mg Tablet.Er) 450 mg PO BEDTIME SILVANA Last Admin: 02/20/25 21:40 Dose: 450 mg Magnesium Hydroxide (Milk Of Magnesia 30 Ml Oral.Susp) 30 ml PO DAILY PRN PRN Reason: Constipation Nicotine (Nicotine 21 Mg Patch.Td24) 21 mg TRANSDERMA DAILY PRN PRN Reason: nicotine craving Nicotine Polacrilex (Nicotine Polacrilex 2 Mg Gum) 2 mg BUCCAL Q2H PRN PRN Reason: Nicotine Cravings Olanzapine (Olanzapine 5 Mg Tablet) 5 mg PO BID PRN PRN Reason: agitation Trazodone HCl (Trazodone Hcl 50 Mg Tablet) 50 mg PO BEDTIME MRX1 PRN PRN Reason: Insomnia Last Admin: 02/20/25 23:06 Dose: 50 mg Allergies Allergies Allergy/AdvReac Type Severity Reaction Status Date / Time acetaminophen (From Pamprin Allergy Hives Verified 02/18/25 21:29 Max) aspirin (From Pamprin Max) Allergy Hives Verified 02/18/25 21:29 caffeine (From Pamprin Max) Allergy Hives Verified 02/18/25 21:29 pamabrom (From Midol) Allergy Hives Verified 02/18/25 21:29 Assessment & Plan Assessment & Plan (1) Bipolar 1 disorder, depressed: Status: Acute Code(s): F31.9 - Bipolar disorder, unspecified (2) PTSD (post-traumatic stress disorder): Status: Acute Code(s): F43.10 - Post-traumatic stress disorder, unspecified Plan Patient is a 39 year old female with hx of MDD, PTSD who presented to ER d/t suicidal ideation secondary to increased depression and life stressors. Plan: CV 15 minute safety checks obtain collateral Continue current med regimen: [place] ER 450mg PO bedtime-- started 02/19. Check level am of 02/25 prn hydroxyzine for anxiety prn trazodone for insomnia referral to outpatient psychiatric providers encourage groups discharge planning 02/21: slept well with trazodone 50. no issues. continue current mgmt. Reason for continued inpatient stay Substantial Risk for: harm to self, inability to function and rapid decompensation Time Spent With Patient Time: Total time managing care of this patient today ____ minutes.
[2025-02-22 08:19] VITALS: BP 129/77; PULSE 74; RESP 16; TEMP 36.8; O2SAT 100
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
[2025-02-22 19:46] VITALS: BP 120/75; PULSE 64; RESP 16; TEMP 37.2; O2SAT 100
[2025-02-23 07:54] VITALS: BP 141/75; PULSE 84; RESP 16; TEMP 36.7; O2SAT 100
--- NOTE | 2025-02-23 11:33 | P.PNPSI_ITS ---
Subjective Subjective Date of Service: 02/23/25 Reason For Visit: Major Depressive Disorder,rec severe Subjective Notes: Conditional Voluntary Interim History: Active on unit. attending groups. Patient reports feeling better ; pt stated, my mood is more stable than when I came here . denies SI/HI/VH/AH. She reports sleeping well. [place] level to be drawn tomorrow morning; pt aware. Plan to discharge home on Sunday (02/25/25). Medication Compliance: Yes Side effects from medications: No Attending Groups: Yes Mental Status Exam Mental Status Exam Narrative: Pt is alert and oriented; behavior is cooperative and calm; dressed in casual attire; mood is described as good ; eye contact appropriate; Speech is normal rate, volume and not pressured; thought process is organized; Thought content is on tx; denies any SI/HI/VH/AH. Diagnostics Vital Signs (24Hr): Vital Signs - 24 hr 02/22/25 19:46 02/23/25 07:54 Temperature 99.0 F 98.1 F Pulse Rate 64 84 Respiratory Rate 16 16 Blood Pressure 120/75 141/75 H Pulse Oximetry 100 100 Oxygen Delivery Method Room Air Room Air BMI result Body Mass Index 31.8 Labs 02/19/25 07:30 Medications Medications Current Medications Al Hydroxide/Mg Hydroxide (Magnesium Hydrox/Alum Hydrox 30 Ml Oral.Susp) 30 ml PO Q6H PRN PRN Reason: Heartburn/Nausea Famotidine (Famotidine 20 Mg Tablet) 40 mg PO DAILY PRN PRN Reason: Indigestion Fluticasone Propionate (Fluticasone Propionate Nasal 16 Gm [place]) 1 spray NOSTRIL-B DAILY PRN PRN Reason: nasal congestion Hydroxyzine HCl (Hydroxyzine Hcl 25 Mg Tablet) 25 mg PO Q6H PRN PRN Reason: mild anxiety Last Admin: 02/21/25 10:17 Dose: 25 mg [place] Carbonate ([place] Carbonate Er 450 Mg Tablet.Er) 450 mg PO BEDTIME SILVANA Last Admin: 02/22/25 20:42 Dose: 450 mg Magnesium Hydroxide (Milk Of Magnesia 30 Ml Oral.Susp) 30 ml PO DAILY PRN PRN Reason: Constipation Nicotine (Nicotine 21 Mg Patch.Td24) 21 mg TRANSDERMA DAILY PRN PRN Reason: nicotine craving Nicotine Polacrilex (Nicotine Polacrilex 2 Mg Gum) 2 mg BUCCAL Q2H PRN PRN Reason: Nicotine Cravings Olanzapine (Olanzapine 5 Mg Tablet) 5 mg PO BID PRN PRN Reason: agitation Last Admin: 02/23/25 08:32 Dose: 5 mg Trazodone HCl (Trazodone Hcl 50 Mg Tablet) 50 mg PO BEDTIME MRX1 PRN PRN Reason: Insomnia Last Admin: 02/22/25 22:46 Dose: 50 mg Allergies Allergies Allergy/AdvReac Type Severity Reaction Status Date / Time acetaminophen (From Pamprin Allergy Hives Verified 02/18/25 21:29 Max) aspirin (From Pamprin Max) Allergy Hives Verified 02/18/25 21:29 caffeine (From Pamprin Max) Allergy Hives Verified 02/18/25 21:29 pamabrom (From Midol) Allergy Hives Verified 02/18/25 21:29 Assessment & Plan Assessment & Plan (1) Bipolar 1 disorder, depressed: Status: Acute Code(s): F31.9 - Bipolar disorder, unspecified (2) PTSD (post-traumatic stress disorder): Status: Acute Code(s): F43.10 - Post-traumatic stress disorder, unspecified Plan Patient is a 39 year old female with hx of MDD, PTSD who presented to ER d/t suicidal ideation secondary to increased depression and life stressors. Plan: CV 15 minute safety checks obtain collateral Continue current med regimen: [place] ER 450mg PO bedtime-- started 02/19. Check level am of 02/25 prn hydroxyzine for anxiety prn trazodone for insomnia referral to outpatient psychiatric providers encourage groups discharge planning 02/21: slept well with trazodone 50. no issues. continue current mgmt. 02/22: slept well. discussing reactive mood and PTSD Dx. paperwork completed for pt and . continue current mgmt. 02/23: Active on unit. attending groups. Patient reports feeling better ; pt stated, my mood is more stable than when I came here . denies SI/HI/VH/AH. She reports sleeping well. [place] level to be drawn tomorrow morning; pt aware. Plan to discharge home on Sunday (02/25/25). Patient educated on: diagnosis and medication risk/benefits Reason for continued inpatient stay Substantial Risk for: med/psych decompensation Time Spent With Patient Time: Total time managing care of this patient today _20___ minutes.
[2025-02-23 20:00] VITALS: BP 108/69; PULSE 66; RESP 17; TEMP 36.5; O2SAT 96
[2025-02-24 07:48] VITALS: BP 141/70; PULSE 75; RESP 20; TEMP 36.6; O2SAT 100
[2025-02-24 08:09] LABS: Lithium 0.41 mmol/L (0.60-1.20)
[2025-02-24 08:19] LABS: Anion Gap 9 (12-20); Blood Urea Nitrogen 9 mg/dL (9-16); Carbon Dioxide 27 mmol/L (22-29); Chloride 109 mmol/L (96-108); Creatinine Clr Calc Pharmacy 113.1; Estimated Glomerular Filt Rate > 60; Potassium 3.8 mmol/L (3.3-5.1); Sodium 141 mmol/L (135-145)
[2025-02-24 09:07] LABS: Free T4 (Free Thyroxine) 0.95 ng/dL (0.71-1.85)
--- NOTE | 2025-02-24 13:53 | PM.EVENT ---
Event Note Date of Service: 02/24/25 Event Note: Asked to see patient for elevated TSH. Patient's TSH noted to be 7.45 with a free T4 of 0.95. Recommendations to continue to monitor periodically every 3 months. No indication for initiation of thyroid medications at this time. Time Spent With Patient Time: Total time managing care of this patient today ____ minutes.
--- NOTE | 2025-02-24 16:05 | P.PNPSI_ITS ---
Subjective Subjective Date of Service: 02/24/25 Reason For Visit: Major Depressive Disorder,rec severe Subjective Notes: Conditional Voluntary Healthcare Proxy: No Guardianship: No Medical Problems Affecting Mental Status: No Interim History: Medical record and nursing notes reviewed; case discussed during rounds with team/nursing staff, and met with patient for supportive therapy/psychoeducation, as well as medication management. Meet with patient. Report continue improving in mood. Report she has been learning a lot in a short period of time how to manage stress and emotion. Denies side effects. Review [place] level and have dose increased with plan to have patient to get lab work for [place] level 5 days after first dose increased. Report she can do walk in intake for psychiatric with [facility] [facility] after discharge. Reviewed with patient regarding Thyroid functions. Patient seen by hospitalist, Per hospitalist, not indicate of restart on Hypothyroidism at this time but recommended re-check every 3 months. Patient reports hx of taking 88mcg about a year ago but stopped taking it after her mom passed. No behavior or management issues. No safety concerns. Will discharge home tomorrow. will pick patient up by 1000. Medication Compliance: Yes Side effects from medications: No Attending Groups: Yes Review of Systems Acute medical concerns: No Medical Review of Systems: unchanged Review of Systems Review of Systems Denies any shortness of breath, chest pain, dizziness, lightheadedness, abdominal pain or discomfort, nausea vomiting or diarrhea Yes all other systems are reviewed and are negative Mental Status Exam Mental Status Exam Narrative: Pt is alert and oriented; behavior is cooperative and calm; dressed in casual attire; mood is described as good ; eye contact appropriate; Speech is normal rate, volume and not pressured; thought process is organized; Thought content is on tx; denies any SI/HI/VH/AH. Fair judgment and insight. Diagnostics Vital Signs (24Hr): Vital Signs - 24 hr 02/23/25 20:00 02/24/25 07:48 Temperature 97.7 F 97.8 F Pulse Rate 66 75 Respiratory Rate 17 20 Blood Pressure 108/69 141/70 H Pulse Oximetry 96 100 Oxygen Delivery Method Room Air Room Air BMI result Body Mass Index 31.8 Labs 02/24/25 07:43 Labs: Laboratory Results - last 48 hr 02/24/25 07:43 Sodium 141 Potassium 3.8 Chloride 109 H Carbon Dioxide 27 Anion Gap 9 L BUN 9 Creatinine 0.74 Estim Creat Clear Calc 113.1 Estimated GFR > 60 TSH 7.45 H Free T4 0.95 [place] 0.41 L Medications Medications Current Medications Al Hydroxide/Mg Hydroxide (Magnesium Hydrox/Alum Hydrox 30 Ml Oral.Susp) 30 ml PO Q6H PRN PRN Reason: Heartburn/Nausea Famotidine (Famotidine 20 Mg Tablet) 40 mg PO DAILY PRN PRN Reason: Indigestion Fluticasone Propionate (Fluticasone Propionate Nasal 16 Gm [place]) 1 spray NOSTRIL-B DAILY PRN PRN Reason: nasal congestion Hydroxyzine HCl (Hydroxyzine Hcl 25 Mg Tablet) 25 mg PO Q6H PRN PRN Reason: mild anxiety Last Admin: 02/21/25 10:17 Dose: 25 mg [place] Carbonate ([place] Carbonate Er 300 Mg Tablet.Er) 600 mg PO BEDTIME SILVANA Magnesium Hydroxide (Milk Of Magnesia 30 Ml Oral.Susp) 30 ml PO DAILY PRN PRN Reason: Constipation Nicotine (Nicotine 21 Mg Patch.Td24) 21 mg TRANSDERMA DAILY PRN PRN Reason: nicotine craving Nicotine Polacrilex (Nicotine Polacrilex 2 Mg Gum) 2 mg BUCCAL Q2H PRN PRN Reason: Nicotine Cravings Olanzapine (Olanzapine 5 Mg Tablet) 5 mg PO BID PRN PRN Reason: agitation Last Admin: 02/23/25 20:49 Dose: 5 mg Trazodone HCl (Trazodone Hcl 50 Mg Tablet) 50 mg PO BEDTIME MRX1 PRN PRN Reason: Insomnia Last Admin: 02/23/25 20:49 Dose: 50 mg Allergies Allergies Allergy/AdvReac Type Severity Reaction Status Date / Time acetaminophen (From Pamprin Allergy Hives Verified 02/18/25 21:29 Max) aspirin (From Pamprin Max) Allergy Hives Verified 02/18/25 21:29 caffeine (From Pamprin Max) Allergy Hives Verified 02/18/25 21:29 pamabrom (From Midol) Allergy Hives Verified 02/18/25 21:29 Assessment & Plan Assessment & Plan (1) Bipolar 1 disorder, depressed: Status: Acute Code(s): F31.9 - Bipolar disorder, unspecified (2) PTSD (post-traumatic stress disorder): Status: Acute Code(s): F43.10 - Post-traumatic stress disorder, unspecified Plan Patient is a 39 year old female with hx of MDD, PTSD who presented to ER d/t suicidal ideation secondary to increased depression and life stressors. Plan: CV 15 minute safety checks obtain collateral Continue current med regimen: [place] ER 450mg PO bedtime-- started 02/19. Check level am of 02/25 prn hydroxyzine for anxiety prn trazodone for insomnia referral to outpatient psychiatric providers encourage groups discharge planning 02/21: slept well with trazodone 50. no issues. continue current mgmt. 02/22: slept well. discussing reactive mood and PTSD Dx. paperwork completed for pt and . continue current mgmt. 02/23: Active on unit. attending groups. Patient reports feeling better ; pt stated, my mood is more stable than when I came here . denies SI/HI/VH/AH. She reports sleeping well. [place] level to be drawn tomorrow morning; pt aware. Plan to discharge home on Sunday (02/25/25). 02/24/25: Meet with patient. Report continue improving in mood. Report she has been learning a lot in a short period of time how to manage stress and emotion. Denies side effects. Review [place] level and have dose increased with plan to have patient to get lab work for [place] level 5 days after first dose increased. Report she can do walk in intake for psychiatric with [facility] [employer] [facility] after discharge. Reviewed with patient regarding Thyroid functions. Patient seen by hospitalist, Per hospitalist, not indicate of restart on Hypothyroidism at this time but recommended re-check every 3 months. Patient reports hx of taking 88mcg about a year ago but stopped taking it after her mom passed. No behavior or management issues. No safety concerns. Will discharge home tomorrow. will pick patient up by 1000. [place] level on 02/24: 0.41 subtherapeutic. Increase [place] up to 600 at HS. Will recheck in 5 days as outpatient. TSH on 02/19: 5.99. 02/24: 7.45: educate patient on [place] can be possible causing abnormal thyroid functions but patient also has underline of hypothyroidism. Patient advised to FLU with PCP. Will work on sending meds to preferred pharmacy. Patient educated on: diagnosis, medication risk/benefits and therapeutic strategies Informed Consent: understands Reason for continued inpatient stay Substantial Risk for: med/psych decompensation Time Spent With Patient Time: Total time managing care of this patient today ____ minutes.
[2025-02-24 19:46] VITALS: BP 127/59; PULSE 71; RESP 16; TEMP 37.1; O2SAT 100
[2025-02-25 07:48] VITALS: BP 133/62; PULSE 76; RESP 16; TEMP 36.7; O2SAT 100
--- NOTE | 2025-02-25 09:01 | P.DS_ITS ---
DS: Providers Provider Date of admission: 02/18/25 20:36 Primary care physician: Boyd Patterson MD Consults: 02/18/25 21:32 Consult to Hospitalist Routine Comment: Consulting Provider: [facility] Reason For Exam: New external admit for H+P 02/24/25 10:39 Consult to Hospitalist Routine Comment: Consulting Provider: [facility] Reason For Exam: Elevated TSH. Hx of of hypothyroidism DS: Diagnosis Discharge Diagnosis (1) Bipolar 1 disorder, depressed: Status: Acute (2) PTSD (post-traumatic stress disorder): Status: Acute DS: Medications Discharge Medications Home Medications: Home Medications ?Medication ?Instructions ?Recorded ?Confirmed famotidine 40 mg tablet 40 mg PO DAILY PRN Indigesti on 02/18/25 02/18/25 fluticasone propionate 50 intranasal PRN unknown 02/18 mcg/actuation nasal spray,suspension Previous Rx's ?Medication ?Instructions ?Recorded hydroxyzine HCl 25 mg tablet 25 mg PO BID PRN mild anx iety #30 02/24/25 tabs lithium carbonate 300 mg 600 mg (2 x 300 mg) PO BEDTI ME 02/24/25 tablet,extended release Mood #60 tabs trazodone 50 mg tablet 50 mg PO BEDTIME PRN Insomni a #30 02/24/25 tabs Data Data Completed and Pending Completed studies during hospitalization [Text1]: 02/19/25 02/24/25 07:30 07:43 Sodium 140 141 Potassium 4.0 3.8 Chloride 108 109 H Carbon Dioxide 26 27 Anion Gap 10 L 9 L BUN 10 9 Creatinine 0.68 0.74 Estim Creat Clear Calc 122.1 113.1 Estimated GFR > 60 > 60 Random Glucose 88 Estimat Average Glucose 103 Hemoglobin A1c % 5.2 Calcium 9.2 Total Bilirubin 0.6 AST 23 ALT 13 Alkaline Phosphatase 54 Total Protein 6.9 Albumin 4.4 Triglycerides 64 Cholesterol 181 LDL Cholesterol, Calc 118 H HDL Cholesterol 51 TSH 5.99 H 7.45 H Free T4 1.02 0.95 [place] 0.41 L DS: Summary Hospital Course Hospital Course: HPI: per admitting provider note: Patient is a 39 year old female with hx of MDD, PTSD who presented to ER d/t suicidal ideation secondary to increased depression and life stressors. Continue current med regimen: [place] ER 600mg at HS for mood. Will have patient to repeat level again in 5 days with OP lab as dose increased from 450 to 600mg. prn hydroxyzine for anxiety prn trazodone for insomnia 02/21: slept well with trazodone 50. no issues. continue current mgmt. 02/22: slept well. discussing reactive mood and PTSD Dx. paperwork completed for pt and . continue current mgmt. 02/23: Active on unit. attending groups. Patient reports feeling better ; pt stated, my mood is more stable than when I came here . denies SI/HI/VH/AH. She reports sleeping well. [place] level to be drawn tomorrow morning; pt aware. Plan to discharge home on Sunday (02/25/25). 02/24/25: Meet with patient. Report continue improving in mood. Report she has been learning a lot in a short period of time how to manage stress and emotion. Denies side effects. Review [place] level and have dose increased with plan to have patient to get lab work for [place] level 5 days after first dose increased. Report she can do walk in intake for psychiatric with [employer] [facility] after discharge. Reviewed with patient regarding Thyroid functions. Patient seen by hospitalist, Per hospitalist, not indicate of restart on Hypothyroidism at this time but recommended re-check every 3 months. Patient reports hx of taking 88mcg about a year ago but stopped taking it after her mom passed. No behavior or management issues. No safety concerns. Will discharge home tomorrow. will pick patient up by 1000. [place] level on 02/24: 0.41 subtherapeutic. Increase [place] up to 600 at HS. Will recheck in 5 days as outpatient. TSH on 02/19: 5.99. 02/24: 7.45: educate patient on [place] can be possible causing abnormal thyroid functions but patient also has underline of hypothyroidism. Patient advised to FLU with PCP. Will work on sending meds to preferred pharmacy. Time Spent with Patient Time attestation: Total time managing care of this patient today ____ minutes. Discharge Plan Discharge Anticipated Discharge Date/Time: 02/25/25 10:00 Patient Disposition: Home, Self-Care Discharge Diagnosis: Bipolar I, PTSD Referrals: [facility] Walk in [facility] [Other] - 1 Week Referral Note: Walk in hours are Sunday-Sunday 8am-8pm, Sunday and Sunday 9am-5pm Please bring your discharge paperwork, ID, and insurance card with you. Boyd Patterson MD [Primary Care Provider, Internal Medicine] - 03/02/25 3:00 pm Referral Note: 02-24-25 Your follow up appt has been scheduled with Mariana BARNES for 03-02-25 @ 3pm Discharge Medications: New hydroxyzine HCl 25 mg Tablet 25 mg PO BID PRN (Reason: mild anxiety) Qty: 30 0RF lithium carbonate 300 mg Tablet Extended Release 600 mg PO BEDTIME Qty: 60 0RF trazodone 50 mg Tablet 50 mg PO BEDTIME PRN (Reason: Insomnia) Qty: 30 0RF Continued famotidine 40 mg tablet 40 mg PO DAILY PRN (Reason: Indigestion) fluticasone propionate 50 mcg/actuation spray,suspension intranasal PRN (Reason: unknown) Diet: Regular diet Activity on Discharge: No Restrictions Stand Alone Forms: Patient Portal Discharge page Print Language: [place] Care Plan Goals: Maintain mood and safe behaviors Take medications as prescribed Continue to pursue sobriety Practice coping skills Continue with outpatient providers and reach out to them as needed Health Concerns: Mood stability and behaviors Sobriety Plan of Treatment: Follow up with your PCP, psychiatric provider and other outpatient providers regarding above concerns Take medications as prescribed Assessment: Patient is not in imminent risk of harm to self or others and has a safety plan that includes presenting to the closest ER or calling 911 if feeling unsafe.
--- NOTE | 2025-02-25 20:02 | P.DS_ITS ---
DS: Providers Provider Date of Service: 02/25/25 Date of admission: 02/18/25 20:36 Date of discharge: 02/25/25 Primary care physician: Boyd Patterson MD Attending physician on admission: Cinthya Nunez Consults: 02/18/25 21:32 Consult to Hospitalist Routine Comment: Consulting Provider: [facility] Reason For Exam: New external admit for H+P 02/24/25 10:39 Consult to Hospitalist Routine Comment: Consulting Provider: [facility] Reason For Exam: Elevated TSH. Hx of of hypothyroidism Attending physician on discharge: Belkys Hamilton DS: Diagnosis Discharge Diagnosis (1) Bipolar 1 disorder, depressed: Status: Acute (2) PTSD (post-traumatic stress disorder): Status: Acute DS: Medications Discharge Medications Home Medications: Home Medications ?Medication ?Instructions ?Recorded ?Confirmed famotidine 40 mg tablet 40 mg PO DAILY PRN Indigesti on 02/18/25 02/18/25 fluticasone propionate 50 intranasal PRN unknown 02/18 mcg/actuation nasal spray,suspension Previous Rx's ?Medication ?Instructions ?Recorded hydroxyzine HCl 25 mg tablet 25 mg PO BID PRN mild anx iety #30 02/24/25 tabs lithium carbonate 300 mg 600 mg (2 x 300 mg) PO BEDTI ME 02/24/25 tablet,extended release Mood #60 tabs trazodone 50 mg tablet 50 mg PO BEDTIME PRN Insomni a #30 02/24/25 tabs Mental Status Exam Mental Status Exam Narrative: Patient presents well-groomed, casually dressed. Affect is euthymic with full range. Speech is clear and coherent. Thought process is linear and logical. Thought content is appropriate and relevant. Patient denies suicidal or homicidal ideation intent or plan. No overt psychotic symptoms elicited. Insight is good. Judgment is good. Data Data Completed and Pending Completed studies during hospitalization [Text1]: 02/19/25 02/24/25 07:30 07:43 Sodium 140 141 Potassium 4.0 3.8 Chloride 108 109 H Carbon Dioxide 26 27 Anion Gap 10 L 9 L BUN 10 9 Creatinine 0.68 0.74 Estim Creat Clear Calc 122.1 113.1 Estimated GFR > 60 > 60 Random Glucose 88 Estimat Average Glucose 103 Hemoglobin A1c % 5.2 Calcium 9.2 Total Bilirubin 0.6 AST 23 ALT 13 Alkaline Phosphatase 54 Total Protein 6.9 Albumin 4.4 Triglycerides 64 Cholesterol 181 LDL Cholesterol, Calc 118 H HDL Cholesterol 51 TSH 5.99 H 7.45 H Free T4 1.02 0.95 [place] 0.41 L DS: Summary Hospital Course Hospital Course: HPI: per admitting provider note: Patient is a 39 year old female with hx of MDD, PTSD who presented to ER d/t suicidal ideation secondary to increased depression and life stressors. Continue current med regimen: [place] ER 600mg at HS for mood. Will have patient to repeat level again in 5 days with OP lab as dose increased from 450 to 600mg. prn hydroxyzine for anxiety prn trazodone for insomnia 02/21: slept well with trazodone 50. no issues. continue current mgmt. 02/22: slept well. discussing reactive mood and PTSD Dx. paperwork completed for pt and . continue current mgmt. 02/23: Active on unit. attending groups. Patient reports feeling better ; pt stated, my mood is more stable than when I came here . denies SI/HI/VH/AH. She reports sleeping well. [place] level to be drawn tomorrow morning; pt aware. Plan to discharge home on Sunday (02/25/25). 02/24/25: Meet with patient. Report continue improving in mood. Report she has been learning a lot in a short period of time how to manage stress and emotion. Denies side effects. Review [place] level and have dose increased with plan to have patient to get lab work for [place] level 5 days after first dose increased. Report she can do walk in intake for psychiatric with [facility] after discharge. Reviewed with patient regarding Thyroid functions. Patient seen by hospitalist, Per hospitalist, not indicate of restart on Hypothyroidism at this time but recommended re-check every 3 months. Patient reports hx of taking 88mcg about a year ago but stopped taking it after her mom passed. No behavior or management issues. No safety concerns. Will discharge home stephane rrow. will pick patient up by 1000. Parkdale level on 02/24: 0.41 subtherapeutic. Increase [place] up to 600 at HS. Will recheck in 5 days as outpatient. TSH on 02/19: 5.99. 02/24: 7.45: educate patient on [place] can be possible causing abnormal thyroid functions but patient also has underline of hypothyroidism. Patient advised to FLU with PCP. Will work on sending meds to preferred pharmacy. 02/25/25: Remind patient regarding [place] level and thyroid which needed to be rechecked in 5 days. patient feels safe to discharge. She is excited to be back with her family. Plan to surprise her daughter by picking her up at school. Time spent discussing smoking cessation with patient: 3 to 10 minutes Status at Discharge Cognitive/behavioral status at discharge: CONDITION ON DISCHARGE: CURRENT STATUS IT RELATES TO ADMISSION CRITERIA: Stable, improved. Improvements in depression, anxiety, and suicidal ideation. Improvements in sleep, energy, and appetite. and no hallucination or paranoia/delusional thought. Functional status at discharge: independent ambulation Overall status at discharge: patient is back to baseline Time Spent with Patient Time attestation: Total time managing care of this patient today ____ minutes. Time spent: Greater than 30 minutes Discharge Plan Discharge Anticipated Discharge Date/Time: 02/25/25 10:00 Patient Disposition: Home, Self-Care Discharge Diagnosis: Bipolar I, PTSD Referrals: [facility] [Other] - 1 Week Referral Note: Walk in hours are Sunday-Sunday 8am-8pm, Sunday and Sunday 9am-5pm Please bring your discharge paperwork, ID, and insurance card with you. Boyd Patterson MD [Primary Care Provider, Internal Medicine] - 03/02/25 3:00 pm Referral Note: 02-24-25 Your follow up appt has been scheduled with Mariana BARNES for 03-02-25 @ 3pm Discharge Medications: New hydroxyzine HCl 25 mg Tablet 25 mg PO BID PRN (Reason: mild anxiety) Qty: 30 0RF lithium carbonate 300 mg Tablet Extended Release 600 mg PO BEDTIME Qty: 60 0RF trazodone 50 mg Tablet 50 mg PO BEDTIME PRN (Reason: Insomnia) Qty: 30 0RF Continued famotidine 40 mg tablet 40 mg PO DAILY PRN (Reason: Indigestion) fluticasone propionate 50 mcg/actuation spray,suspension intranasal PRN (Reason: unknown) Discharge Orders: Discharge Order (Routine); Ordered 02/25/25 Ordered By: Cinthya Nunez Diet: Regular diet Activity on Discharge: No Restrictions Stand Alone Forms: Patient Portal Discharge page, Community Support Print Language: Yakut Care Plan Goals: Maintain mood and safe behaviors Take medications as prescribed Continue to pursue sobriety Practice coping skills Continue with outpatient providers and reach out to them as needed Health Concerns: Mood stability and behaviors Sobriety Plan of Treatment: Follow up with your PCP, psychiatric provider and other outpatient providers regarding above concerns Take medications as prescribed Assessment: Patient is not in imminent risk of harm to self or others and has a safety plan that includes presenting to the closest ER or calling 911 if feeling unsafe. Discharge Date/Time: 02/25/25 10:22
== END 2025-02-25 10:22 | disposition home or self-care (01) | DRG 753 ==
PROVIDERS: Nurse Practitioner Psychiatric/Mental Health; Admitting Provider Psychiatry & Neurology Psychiatry; PCP Internal Medicine; Responsible Provider Registered Nurse; Visit Provider Psychiatry & Neurology Psychiatry
DX: F31.9 Bipolar disorder, unspecified (principal); R45.851 Suicidal ideations; F43.10 Post-traumatic stress disorder, unspecified; J30.9 Allergic rhinitis, unspecified; Z79.899 Other long term (current) drug therapy
CPT/HCPCS: 36415; 80051; 80053; 80061; 80178; 82565; 83036; 84439; 84443; 84520

== ENCOUNTER → 2025-02-18 20:36 | Outpatient (BNV) | payer BC, SELFPAY | PROVIDERS: Admitting Provider Psychiatry & Neurology Psychiatry; PCP Internal Medicine; Responsible Provider Registered Nurse; Visit Provider Psychiatry & Neurology Psychiatry | DX: F31.9 Bipolar disorder, unspecified (principal); F43.10 Post-traumatic stress disorder, unspecified | CPT/HCPCS: 90792; 99231; 99232 ==

== ENCOUNTER → 2025-02-18 20:36 | Outpatient (BNV) | payer BC, SELFPAY | PROVIDERS: Admitting Provider Psychiatry & Neurology Psychiatry; PCP Internal Medicine; Responsible Provider Registered Nurse; Visit Provider Nurse Practitioner Family | DX: Z02.2 Encounter for examination for admission to residential institution (principal) | CPT/HCPCS: 99429 ==